=== PATIENT | male | born 1955 | race African-American/Black ===

== ENCOUNTER 2020-01-25 20:11 | Emergency (ER) | payer MEDICARE, MEDICAID ==
[~2020-01-25] VITALS: Ht 188 cm; Wt 83.9 kg
[~2020-01-25 20:11] MED LIST: ABILIFY5 MG ORAL; CEFEPIME-D1 GM/50 ML IVPB; DILANTIN100 MG ORAL; IBUPROFEN600 MG ORAL; LORTAB 5-325 M1 EACH PO; POTASSIUM CHLO20 ME3 PO; RANITIDINE HCL150 MG ORAL; REMERON45 MG ORAL; XARELTO10 MG ORAL; XARELTO15 MG ORAL
--- NOTE | 2020-01-25 20:11 | NUR ---
ED Nurse Note: brought in by andrae [id number] from home c/o bilat leg pain d/t ulcers. pt states chronic ulcer. pt is wheelchair bound. vss, nad, aaox4, ambulatory with wheelchair.
--- NOTE | 2020-01-25 20:17 | Emergency Room Report ---
History of Present Illness General Chief Complaint: Lower Extremity Injury Source: Patient Present Illness HPI 64-year-old male brought in by EMS from his home for wound care. Patient states that he has chronic leg wound ulcers since 1997. He states that he would have a home health nurse come by every couple days for wound care but his insurance changed and has not had any ready to do his wound care. He states that he brought supplies in case we do not have what he needed. He states that he is no longer on antibiotics that they took his PICC line out. Patient denies any fever or chills. He denies any chest pain or shortness of breath. Allergies: Coded Allergies: No Known Allergies (Unverified , 12/10/14) COVID-19 Screening Contact w/high risk pt: No Experienced COVID-19 symptoms?: No COVID-19 Testing performed REVENUE LIAISON: No Patient History Reviewed Nursing Documentation: PMH: Agreed; PSxH: Agreed Nursing Documentation-PMH Hx Hypertension: No Hx Pacemaker: No Hx Asthma: No Hx Diabetes: No Hx Cancer: No Hx Cerebrovascular Accident: No Hx Transient Ischemic Attacks: No Hx Dementia: No Hx Parkinson's Disease: No Hx Seizures: Yes Review of Systems All Other Systems: negative except mentioned in HPI Physical Exam Sp02 EP Interpretation: reviewed, normal General Appearance: no apparent distress, alert, GCS 15, non-toxic Head: normocephalic, atraumatic Eyes: bilateral eye normal inspection, bilateral eye PERRL ENT: hearing grossly normal, normal pharynx, no angioedema, normal voice Neck: full range of motion, supple/symm/no masses Respiratory: no respiratory distress, no accessory muscle use, other - Left lower lobe rhonchi Cardiovascular #1: regular rate, rhythm Gastrointestinal: non tender, soft, no guarding, no rebound Rectal: deferred Musculoskeletal: other - Left lower leg old healing ulceration right tib-fib diffuse macerated lesion and ulceration with yellow foul-smelling discharge Neurologic: upholsterer limousine and hearse III-XII nml as tested, oriented x3 Psychiatric: no suicidal/homicidal ideation Skin: no rash Lymphatic: no adenopathy Medical Decision Making Diagnostic Impression: Primary Impression: Cellulitis Additional Impressions: Pneumonia Pleural effusion Anemia ER Course Patient pancultured. Patient started on vancomycin as well as cefepime for his cellulitis and pneumonia. Patient's vital signs have been stable. Patient being transferred for further treatment and evaluation. Labs Test 01/25/20 21:10 01/25/20 21:17 01/26/20 00:50 White Blood Count 9.7 K/UL (4.8-10.8) Red Blood Count 3.56 M/UL (4.70-6.10) Hemoglobin 10.3 G/DL (14.2-18.0) Hematocrit 32.8 % (42.0-52.0) Mean Corpuscular Volume 92 FL (80-99) Mean Corpuscular Hemoglobin 28.8 PG (27.0-31.0) Mean Corpuscular Hemoglobin Concent 31.3 G/DL (32.0-36.0) Red Cell Distribution Width 15.8 % (11.6-14.8) Platelet Count 367 K/UL (150-450) Mean Platelet Volume 4.5 FL (6.5-10.1) Neutrophils (%) (Auto) 67.8 % (45.0-75.0) Lymphocytes (%) (Auto) 19.4 % (20.0-45.0) Monocytes (%) (Auto) 7.5 % (1.0-10.0) Eosinophils (%) (Auto) 4.7 % (0.0-3.0) Basophils (%) (Auto) 0.6 % (0.0-2.0) Prothrombin Time 10.7 SEC (9.30-11.50) Prothromb Time International Ratio 1.0 (0.9-1.1) Activated Partial Thromboplast Time 32 SEC (23-33) Sodium Level 141 MMOL/L (136-145) Potassium Level 4.0 MMOL/L (3.5-5.1) Chloride Level 109 MMOL/L (98-107) Carbon Dioxide Level 19 MMOL/L (21-32) Anion Gap 13 mmol/L (5-15) Blood Urea Nitrogen 13 mg/dL (7-18) Creatinine 1.9 MG/DL (0.55-1.30) Estimat Glomerular Filtration Rate 43.6 mL/min (>60) Glucose Level 111 MG/DL (74-106) Lactic Acid Level 1.30 mmol/L (0.4-2.0) Calcium Level 9.2 MG/DL (8.5-10.1) Magnesium Level 2.1 MG/DL (1.8-2.4) Total Bilirubin 0.1 MG/DL (0.2-1.0) Aspartate Amino Transf (AST/SGOT) 12 U/L (15-37) Alanine Aminotransferase (ALT/SGPT) 10 U/L (12-78) Alkaline Phosphatase 96 U/L (46-116) Total Creatine Kinase 59 U/L (26-308) Total Protein 7.5 G/DL (6.4-8.2) Albumin 2.3 G/DL (3.4-5.0) Globulin 5.2 g/dL Albumin/Globulin Ratio 0.4 (1.0-2.7) Lab Scanned Report Lab Reports [id number] Urine Color Pale yellow Urine Appearance Clear Urine pH 6 (4.5-8.0) Urine Specific [place] 1.015 (1.005-1.035) Urine Protein 1+ (NEGATIVE) Urine Glucose (UA) Negative (NEGATIVE) Urine Ketones Negative (NEGATIVE) Urine Blood Negative (NEGATIVE) Urine Nitrite Negative (NEGATIVE) Urine Bilirubin Negative (NEGATIVE) Urine Urobilinogen Normal MG/DL (0.0-1.0) Urine Leukocyte Esterase 1+ (NEGATIVE) Urine RBC 0-2 /HPF (0 - 0) Urine WBC 0-2 /HPF (0 - 0) Urine Squamous Epithelial Cells None /LPF (NONE/OCC) Urine Bacteria None /HPF (NONE) EKG Diagnostic Results Troponin ordered: No - EKG ordered for sepsis not chest pain EKG Time: 21:41 EP Interpretation: Carol Jean Baptiste MD Rate: normal - 89 bpm Rhythm: NSR ST Segments: no acute changes Other Impression Left bundle branch block ASA given to the pt in ED: No Rhythm Strip Diag. Results Rhythm Strip Time: 21:46 EP Interpretation: yes Rate: 85bpm Rhythm: NSR, no PVC's, no ectopy Chest X-Ray Diagnostic Results Chest X-Ray Diagnostic Results : Chest X-Ray Ordered: Yes # of Views/Limited/Complete: 1 View Indication: Other - Abscess EP Interpretation: Yes Interpretation: no pneumothorax, other - Left lower lobe pleural effusion with superimposed infiltrate, no rib fracture Impression: Other - Pneumonia and pleural effusion Other X-Ray Diagnostic Results Other X-Ray Diagnostic Results : X-Ray ordered: Right tib-fib # of Views/Limited Vs Complete: 4 View Indication: Pain EP Interpretation: Yes Interpretation: no dislocation, no fractures, other - Diffuse postsurgical changes Impression: Other - Diffuse postsurgical changes and periosteal disease Electronically Signed by: Carol Jean Baptiste MD Disposition: ADMITTED INPATIENT - To [facility] Condition: Critical Physician Consult: Dr. Garibay from [facility] Additional Instructions: The patient was provided with discharge instructions, notified to follow-up with a primary care doctor and or specialist in the next 24-48 hours, and to return to the ED if they have worsening of their symptoms. Please note that this report is being documented using [employer]! technology. This can lead to erroneous entry secondary to incorrect interpretation by the dictating instrument. Carol Jean Baptiste M.D. Jan 25, 2020 20:17
[2020-01-25] MEDS ORDERED: Bacitracin Oint UD TOPIC ONE (20:30)
[2020-01-25] MEDS ORDERED: Vancomycin 1.5gm/NS Premix 275 ML IVPB ONE (20:45)
[2020-01-25] MEDS ORDERED: Cefepime HCl 2 GM in D5W 55 ML IVPB ONE (20:45)
--- NOTE | 2020-01-25 20:49 | NUR ---
ED Nurse Note: xr at bedside
--- NOTE | 2020-01-25 21:00 | NUR ---
ED Nurse Note: blood and covid swab collected and sent to lab
--- NOTE | 2020-01-25 21:20 | Diagnostic Imaging Report ---
EXAM: XR Right Tibia and Fibula, 2 Views CLINICAL HISTORY: PAIN TECHNIQUE: Frontal and lateral views of the right tibia and fibula. COMPARISON: No previous study. FINDINGS: Bones/joints: Extensive orthopedic hardware is noted in place at the distal femur bridging the distal femur with the tibia. Arthrodesis of the right knee joint. There is periosteal reaction about the tibia- fibula, most notably in the mid to distal fibula. If there is concern for osteomyelitis, magnetic resonance imaging should be performed. Osteopenia. Soft tissues: Unremarkable. No radiopaque foreign body. Vasculature: Vascular graft is noted in place posterior medially but the right knee joint. Other findings: Clinical correlation is necessary. Cellulitis cannot be excluded based on the current study. IMPRESSION: 1. Extensive postsurgical changes in arthrodesis about the right knee joint. 2. Diffuse periosteal reaction about the tibia and fibula. 3. If there is concern for cellulitis or osteomyelitis, magnetic resonance imaging should be performed. Clinical correlation is advised to 4. Osteopenia.
--- NOTE | 2020-01-25 21:22 | Diagnostic Imaging Report ---
ADDENDUM - Added by Guru Saul MD on 01/25/2020 9:25 PM (-07:00) Reevaluation the AP view of the chest reveals probable moderate size left pleural effusion without small pneumothorax at the left lung base. EXAM: XR Chest, 1 View CLINICAL HISTORY: PAIN TECHNIQUE: Frontal view of the chest. COMPARISON: No previous study. FINDINGS: Lungs: Patchy airspace disease in the left mid lower lung zones presumably related to atelectasis. Right lung is well aerated. Pleural space: There is pleural thickening of the left mid to lower lung laterally. Small are pneumothorax is evident at the left lung base with associated moderate pleural effusion. Heart: Cardiomediastinal silhouette unremarkable. Mediastinum: See above. Bones/joints: Old healed left mid rib fractures posteriorly. IMPRESSION: 1. Small pneumothorax is evident at the left lung base. 2. Moderate left pleural effusion. 3. Presumed atelectasis left mid lower lung zone. <MYCVCSECTION> Communications: 01/25/20 21:23 Call Doctor Regarding Pneumothorax, called Dr. Jean Baptiste on 01/24 21:23 (-07:00) 01/25/20 21:28 Call Doctor Regarding Addendum, called Dr. Jean Baptiste on 01/24 21:28 (-07:00)
[2020-01-25 21:32] LABS: BASOPHILS % (AUTO) 0.6 % (0.0-2.0); EOSINOPHILS % (AUTO) 4.7 % (0.0-3.0); HEMATOCRIT 32.8 % (42.0-52.0); HEMOGLOBIN 10.3 G/DL (14.2-18.0); LYMPHOCYTES % (AUTO) 19.4 % (20.0-45.0); MEAN CORPUSCULAR VOLUME 92 FL (80-99); MONOCYTES % (AUTO) 7.5 % (1.0-10.0); NEUTROPHILS % (AUTO) 67.8 % (45.0-75.0); PLATELET COUNT 367 K/UL (150-450); RED BLOOD COUNT 3.56 M/UL (4.70-6.10); RED CELL DISTRIBUTION WIDTH 15.8 % (11.6-14.8); WHITE BLOOD COUNT 9.7 K/UL (4.8-10.8)
[2020-01-25 21:54] LABS: ANION GAP 13 mmol/L (5-15); BLOOD UREA NITROGEN 13 mg/dL (7-18); CALCIUM 9.2 MG/DL (8.5-10.1); CARBON DIOXIDE 19 MMOL/L (21-32); CHLORIDE 109 MMOL/L (98-107); CREATININE 1.9 MG/DL (0.55-1.30); SODIUM 141 MMOL/L (136-145)
[2020-01-25 21:58] LABS: ALANINE AMINOTRANSFERASE 10 U/L (12-78); ALBUMIN 2.3 G/DL (3.4-5.0); ALBUMIN/GLOBULIN RATIO 0.4 (1.0-2.7); ALKALINE PHOSPHATASE 96 U/L (46-116); ASPARTATE AMINO TRANSFERASE 12 U/L (15-37); BILIRUBIN,TOTAL 0.1 MG/DL (0.2-1.0); CREATINE KINASE 59 U/L (26-308)
--- NOTE | 2020-01-25 21:58 | NUR ---
ED Nurse Note: spoke with Nanda from [facility] for clinical information
[2020-01-26 01:20] LABS: APPEARANCE,URINE CLEAR; BILIRUBIN, URINE NEGATIVE (NEGATIVE); COLOR,URINE PALE YELLOW; GLUCOSE, URINE (UA) NEGATIVE (NEGATIVE); KETONES,URINE NEGATIVE (NEGATIVE); LEUKOCYTE ESTERASE ,URINE 1+ (NEGATIVE); NITRITE,URINE NEGATIVE (NEGATIVE); PH,URINE 6 (4.5-8.0); PROTEIN,URINE 1+ (NEGATIVE); UROBILINOGEN,URINE NORMAL MG/DL (0.0-1.0)
[2020-01-26 01:30] VITALS: BP 133/87
--- NOTE | 2020-01-26 01:30 | NUR ---
TRANSFER TO FLOOR: Patient transferred to [facility] via [facility] as ordered, per dr. Trevizo . Report given to Jenn DOWELL. Belongings sent with patient
--- NOTE | 2020-01-26 16:20 | Cardiology Report ---
APPROVED REPORT EKG Measurement Heart [id number] <Conclusion> Normal sinus rhythm Possible Left atrial enlargement Left bundle branch block Abnormal ECG
== END 2020-01-26 01:30 | disposition short-term general hospital (02) ==
LOC: EDBD 20:11 → EMR 21:17 → EDBEDREQSVC 21:24 → EMR 01-26 01:30
DX: L03.90 Cellulitis, unspecified (principal); J18.9 Pneumonia, unspecified organism; J90 Pleural effusion, not elsewhere classified; D64.9 Anemia, unspecified; G40.909 Epilepsy, unspecified, not intractable, without status epilepticus; M85.861 Other specified disorders of bone density and structure, right lower leg; J93.9 Pneumothorax, unspecified
CPT/HCPCS: 36415; 71045; 73590; 80053; 81003; 82550; 83605; 83735; 85025; 85610; 85730; 87040; 87070; 87181; 87205; 93005; 96365; 96366; 96368; 99284; J3370; J7030; U0002

== ENCOUNTER 2020-03-25 17:46 | Inpatient (IN) | payer MEDICARE, MEDICAID ==
[~2020-03-25] VITALS: Ht 182.9 cm; Wt 82.6 kg
--- NOTE | 2020-03-25 17:55 | NUR ---
ED Nurse Note: Pt brought in by ambulance from home c/o new bleeding on the right foot. Pt reports having wounds on bilateral lower ext x 1 year, but the foot is now bleeding consistently x 2 days. Right leg assessed and has extensive wounds. Pt unable to ambulate. A+Ox4, speaking in complete sentences. Respirations even and unlabored on room air. Vitals stable as documented.
[2020-03-25 18:00] VITALS: BP 149/85
[2020-03-25] MEDS ORDERED: Vancomycin 1.5gm/300ml Premix 300 ML IVPB ONE (19:00)
--- NOTE | 2020-03-25 19:18 | NUR ---
HAND-OFF: Report given to MAGALYS Bales. Pt in stable condition; plan of care endorsed.
--- NOTE | 2020-03-25 19:19 | NUR ---
ED Nurse Note: pt laying in bed with legs dangling for pain/ pressure relief. Pt is AAOx4, breathing even and unlabored. No complaints from pt at this time.
--- NOTE | 2020-03-25 19:23 | NUR ---
ED Nurse Note: per EDMD do not collect wound culture
--- NOTE | 2020-03-25 19:24 | NUR ---
ED Nurse Note: blood and cultures sent to lab
--- NOTE | 2020-03-25 19:35 | Emergency Room Report ---
History of Present Illness General Chief Complaint: Wound Recheck/Suture Removal Source: Patient, EMS Present Illness HPI 64-year-old male presents for wound check. Brought in by EMS from home. States he was bleeding from his leg. Has large ulcers to his right leg which have been there for years. Gets home wound care. States he does take blood thinners but stopped a few days ago. States that the wound is getting worse to his legs. Denies pain. Denies fevers or chills. No other aggravating relieving factors. Denies any other associated symptoms Allergies: Coded Allergies: No Known Allergies (Unverified , 12/10/14) COVID-19 Screening Contact w/high risk pt: No Experienced COVID-19 symptoms?: No COVID-19 Testing performed COMMUNICATIONS DIRECTOR: No Patient History Past Medical History: none Past Surgical History: none Pertinent Family History: none Social History: Denies: smoking, alcohol use, drug use Immunizations: UTD Reviewed Nursing Documentation: PMH: Agreed; PSxH: Agreed Nursing Documentation-PMH Hx Hypertension: No Hx Pacemaker: No Hx Asthma: No Hx Diabetes: No Hx Cancer: No Hx Cerebrovascular Accident: No Hx Transient Ischemic Attacks: No Hx Dementia: No Hx Parkinson's Disease: No Hx Seizures: Yes Review of Systems All Other Systems: negative except mentioned in HPI Physical Exam Vital Signs Date Time Temp Pulse Resp B/P (MAP) Pulse Ox O2 Delivery O2 Flow Rate FiO2 03/25/20 17:47 98.4 92 19 142/80 (100) 99 Room Air Sp02 EP Interpretation: reviewed, normal General Appearance: no apparent distress, alert, GCS 15, non-toxic Head: normocephalic, atraumatic Eyes: bilateral eye normal inspection, bilateral eye PERRL ENT: hearing grossly normal, normal pharynx, no angioedema, normal voice Neck: full range of motion, supple/symm/no masses Respiratory: chest non-tender, lungs clear, normal breath sounds, speaking full sentences Cardiovascular #1: regular rate, rhythm, no edema Cardiovascular #2: 2+ carotid (R), 2+ carotid (L), 2+ radial (R), 2+ radial (L), 2+ dorsalis pedis (R), 2+ dorsalis pedis (L) Gastrointestinal: normal bowel sounds, non tender, soft, non-distended, no guarding, no rebound Rectal: deferred Genitourinary: normal inspection, no CVA tenderness Musculoskeletal: back normal, normal range of motion, gait/station normal, non- tender Neurologic: alert, motor strength/tone normal, oriented x3, sensory intact, responsive, speech normal Psychiatric: judgement/insight normal, memory normal, mood/affect normal, no suicidal/homicidal ideation Reflexes: 3+ bicep (R), 3+ bicep (L), 3+ tricep (R), 3+ tricep (L), 3+ knee (R), 3+ knee (L) Skin: other - large cutaneous ulcers with breakdown of skin to muscle and bone RLE. Lymphatic: no adenopathy Medical Decision Making Diagnostic Impression: Primary Impression: Chronic cutaneous venous stasis ulcer Additional Impression: Cellulitis Qualified Codes: L03.115 - Cellulitis of right lower limb ER Course Hospital Course 64-year-old male presents with bleeding from ulcers to his right leg Differential diagnoses include: Cellulitis, abscess, rash. Clinical course Patient placed on stretcher. After initial history physical exam reveals middle-age male in no acute distress. There is significant breakdown of skin to numerous parts of the right lower extremity. Often bone is exposed. There appears to be no improvement despite home wound care. Patient may ultimately require amputation. Dressings changed. Labs drawn. IV antibiotics ordered Dr Lloyd consulted. patient admitted to Dr Fuller Diagnosis - cellulitis, chronic cutaneous venous stasis ulcers. Patient admitted to floor in serious condition Laboratory Tests Test 03/25/20 19:20 White Blood Count 10.6 K/UL (4.8-10.8) Red Blood Count 3.01 M/UL (4.70-6.10) L Hemoglobin 8.2 G/DL (14.2-18.0) L Hematocrit 25.6 % (42.0-52.0) L Mean Corpuscular Volume 85 FL (80-99) Mean Corpuscular Hemoglobin 27.3 PG (27.0-31.0) Mean Corpuscular Hemoglobin Concent 32.1 G/DL (32.0-36.0) Red Cell Distribution Width 16.6 % (11.6-14.8) H Platelet Count 383 K/UL (150-450) Mean Platelet Volume 4.8 FL (6.5-10.1) L Neutrophils (%) (Auto) 62.8 % (45.0-75.0) Lymphocytes (%) (Auto) 24.8 % (20.0-45.0) Monocytes (%) (Auto) 7.3 % (1.0-10.0) Eosinophils (%) (Auto) 4.1 % (0.0-3.0) H Basophils (%) (Auto) 0.9 % (0.0-2.0) Prothrombin Time 11.5 SEC (9.30-11.50) Prothromb Time International Ratio 1.0 (0.9-1.1) Activated Partial Thromboplast Time 24 SEC (23-33) Sodium Level Pending Potassium Level Pending Chloride Level Pending Carbon Dioxide Level Pending Blood Urea Nitrogen Pending Creatinine Pending Estimat Glomerular Filtration Rate Pending Glucose Level Pending Lactic Acid Level Pending Calcium Level Pending Total Bilirubin Pending Aspartate Amino Transf (AST/SGOT) Pending Alanine Aminotransferase (ALT/SGPT) Pending Alkaline Phosphatase Pending Total Protein Pending Albumin Pending Globulin Pending Last Vital Signs Date Time Temp Pulse Resp B/P (MAP) Pulse Ox O2 Delivery O2 Flow Rate FiO2 03/25/20 18:00 98.1 85 20 149/85 98 Room Air Status: improved Disposition: HOME, SELF-CARE Condition: Stable Referrals: [facility] Patient Instructions: Wound Check Konrad Rios MD Mar 25, 2020 19:35
[2020-03-25 20:41] LABS: BASOPHILS % (AUTO) 0.9 % (0.0-2.0); EOSINOPHILS % (AUTO) 4.1 % (0.0-3.0); HEMATOCRIT 25.6 % (42.0-52.0); HEMOGLOBIN 8.2 G/DL (14.2-18.0); LYMPHOCYTES % (AUTO) 24.8 % (20.0-45.0); MEAN CORPUSCULAR VOLUME 85 FL (80-99); MONOCYTES % (AUTO) 7.3 % (1.0-10.0); NEUTROPHILS % (AUTO) 62.8 % (45.0-75.0); PLATELET COUNT 383 K/UL (150-450); RED BLOOD COUNT 3.01 M/UL (4.70-6.10); RED CELL DISTRIBUTION WIDTH 16.6 % (11.6-14.8); WHITE BLOOD COUNT 10.6 K/UL (4.8-10.8)
[2020-03-25 20:52] LABS: CREATININE 1.7 MG/DL (0.55-1.30); POTASSIUM 4.7 MMOL/L (3.5-5.1)
[2020-03-25 20:57] LABS: ALBUMIN 2.1 G/DL (3.4-5.0); ALBUMIN/GLOBULIN RATIO 0.4 (1.0-2.7); BILIRUBIN,TOTAL 0.2 MG/DL (0.2-1.0)
[2020-03-25 21:09] VITALS: BP 138/87
--- NOTE | 2020-03-25 21:14 | NUR ---
ED Nurse Note: report given to MAGALYS Alvarenga in [facility].
--- NOTE | 2020-03-25 21:20 | NUR ---
ED Nurse Note: Pt transfered to [facility] via [facility]urney. Per EDMD ok to transfer. Belongings and admission packet sent up with pt.
[2020-03-25 21:45] VITALS: BP 118/58
--- NOTE | 2020-03-25 22:00 | NUR ---
NURSE NOTES: Received report from [facility] ED. Pt arrived @2145 via [place]. AAO x 4, on room air. Pt c/o pain on R leg 11/26. Pt has ulcer on R/L lower leg. Vitals stable. Orientation to the room and facility given. All belongings reviewed and $81 pruett counted. Denied to keep the money in hospital's safe. Pt brought home med Mirtazapine 45mg PO before bedtime but denied to send to the pharmacy. Bed locked, lowest position, side rails up, alarm on, call light within reach. Will continue to monitor. Addendum: 03/25/20 at 235 by LORENZA DIAZ RN RN Admission order entered by Dr. Christian.
[2020-03-25] MEDS: 1/2NS w/KCl 20mEq 1000ml 1,000 ML IV SCH (22:05)
[2020-03-25] MEDS: Piperacillin/Tazobactam 3.375 GM in NS 110 ML IVPB SCH (22:05)
[2020-03-25] MEDS ORDERED: MIRTAZAPINE15 M3 ORAL (22:42)
[2020-03-25] MEDS ORDERED: ATORVASTATIN CA40 MG ORAL (22:49)
--- NOTE | 2020-03-25 23:30 | NUR ---
NURSE NOTES: Wound dressings changed. Large amount of drainage, blood, and foul smell noted on R lower leg. Picture taken. Addendum: 03/26/20 at 0016 by LORENZA DIAZ RN RN NURSE NOTES: 4*4, ABD pads, Kerlix applied
[2020-03-26] VITALS: BP 120/62
[2020-03-26 04:00] VITALS: BP 108/53
[2020-03-26] MEDS: Piperacillin/Tazobactam 3.375 GM in NS 110 ML IVPB SCH ×3 (05:01→21:23)
--- NOTE | 2020-03-26 05:59 | NUR ---
NURSE HAND-OFF: Important Events on Shift:admission, pain, wound care Patient Status: stable Diet: reg Pending Orders: VD 03/26 Pending Results/Labs:am labs Pending MD notification: Latest Vital Signs: Temperature 98.6 , Pulse 109 , B/P 108 /53 , Respiratory Rate 20 , O2 SAT 96 , Room Air, O2 Flow Rate . Vital Sign Comment: [] Latest Castano Fall Score: 20 Fall Risk: Low Risk Safety Measures: Call light Within Reach, Bed Alarm Zone 1, Side Rails Side Rails x2, Bed position Low and Locked. Fall Precautions: Yellow Socks Yellow Gown Door Sign Patient Fall Education Addendum: 03/26/20 at 0735 by LORENZA DIAZ RN RN HAND-OFF: Report given to
[2020-03-26 06:19] LABS: HEMATOCRIT 20.8 % (42.0-52.0); MEAN CORPUSCULAR VOLUME 83 FL (80-99); PLATELET COUNT 356 K/UL (150-450); RED BLOOD COUNT 2.49 M/UL (4.70-6.10); RED CELL DISTRIBUTION WIDTH 16.9 % (11.6-14.8); WHITE BLOOD COUNT 15.4 K/UL (4.8-10.8)
[2020-03-26 06:50] LABS: CALCIUM 8.5 MG/DL (8.5-10.1); CREATININE 1.6 MG/DL (0.55-1.30); POTASSIUM 4.1 MMOL/L (3.5-5.1)
[2020-03-26 07:21] LABS: HEMOGLOBIN 6.9 G/DL (14.2-18.0)
[2020-03-26 08:00] VITALS: BP 126/51
--- NOTE | 2020-03-26 08:19 | NUR ---
NURSE NOTES: Patient is awake and alert,respirations unlabored.IV fluids infusing as ordered.bilateral leg dressing intact.Patient has medication at the bedside,patient agree to have his home medication to be sent to pharmacy.medication sent to pharmacy.Call light within reach.
[2020-03-26] MEDS: Vancomycin 750mg/NS 275ml IVPB SCH ×4 (09:44→21:00)
--- NOTE | 2020-03-26 10:39 | NUR ---
Entry Level Mechanical Engineer: Notified MD Christian about [facility] lab this morning of 6.9. Received new orders, MAGALYS Gonzalez made aware.
--- NOTE | 2020-03-26 10:42 | Diagnostic Imaging Report ---
EXAM: ULTRASOUND Venous Duplex Scan Christopher Leg CLINICAL HISTORY: Leg pain and edema. COMPARISON: None TECHNIQUE: Doppler examination include grayscale images obtained with and without compression, and color and spectral doppler analysis. FINDINGS: Study is positive for bilateral DVT. There is hypoechoic thrombus identified in bilateral common femoral veins which are incompletely compressible. The rest of the left lower extremity from the superficial femoral vein down to the calf veins appear normally patent with good color flow. On the right side, the superficial femoral vein is patent. The popliteal and calf veins are inadequately visualized due to pain and overlying bandages. IMPRESSION: STUDY POSITIVE FOR BILATERAL PARTIAL DVT IS IN THE COMMON FEMORAL VEINS. PATIENT'S NURSE WAS NOTIFIED.
[2020-03-26] MEDS ORDERED: Omnipaque-300 100ml vial INJ ONE (11:00)
[2020-03-26] MEDS ORDERED: Omnipaque-300 100ml vial INJ PRN (11:00)
[2020-03-26] MEDS: 1/2NS w/KCl 20mEq 1000ml 1,000 ML IV SCH (11:20)
--- NOTE | 2020-03-26 11:45 | Consultation ---
DATE OF CONSULTATION: 03/26/2020 INFECTIOUS DISEASES CONSULTATION CONSULTING PHYSICIAN: Clayton Reese MD. REFERRING PHYSICIAN: Del Christian MD. REASON FOR CONSULTATION: Left leg ulcers. HISTORY OF PRESENTING ILLNESS: This is a 64-year-old gentleman with history of seizures who comes in with bleeding from his leg ulcer. He has ulcers on his right leg and his left leg. An Infectious Diseases consultation has been obtained for antibiotics. PAST MEDICAL HISTORY: History of seizures. SOCIAL HISTORY: He is a smoker. He drinks alcohol. No history of drug use. FAMILY HISTORY: Noncontributory. REVIEW OF SYSTEMS: RESPIRATORY: No fever or chills. No cough. No shortness of breath or chest pain. CARDIAC: No chest pain. No palpitations. No dizziness. No syncope. GASTROINTESTINAL: No nausea. No vomiting. No abdominal pain or diarrhea. MUSCULOSKELETAL: He complains of pain. MEDICATIONS: As an inpatient, he is on IV vancomycin, Zosyn, [place], Zofran, Dilaudid, Tylenol. ALLERGIES: No known drug allergies. PHYSICAL EXAMINATION: VITAL SIGNS: Temperature 98.6, T-max of 99.7, pulse of 109, respiratory rate 20, blood pressure 108/53, O2 saturation of 96%. HEENT: Pupils are equally reactive to light and accommodation. Mouth appears clean without thrush. NECK: Supple. No adenopathy. No JVD. CARDIOVASCULAR: Regular rate and rhythm. No murmurs. LUNGS: Clear to auscultation bilaterally. No crackles. No wheezes. ABDOMEN: Soft and nontender. No organomegaly. EXTREMITIES: No cyanosis, no clubbing, no edema. Right leg extensive ulcer noted. Left leg ulcers noted. LABORATORY AND DIAGNOSTIC DATA: White count of 15.4, hemoglobin 6.9, hematocrit 20.8, MCV 83, platelet count of 356. Sodium 137, potassium 4.1, chloride 109, bicarb 21, BUN 13, creatinine 1.6, glucose 106, calcium 8.5. Total bilirubin 0.2, AST 18, ALT 14, alkaline phosphatase 90. Total protein 7.3, albumin 2.1. ASSESSMENT: This is a 64-year-old gentleman with history of seizures who comes in with pain as well as extensive ulcers on his right leg as well as his left leg, would be concerned regarding underlying osteomyelitis. 1. Seizures. 2. Leukocytosis. PLAN: 1. Continue IV vancomycin and Zosyn. 2. We will order wound cultures from the right leg and the left leg. 3. We will order CT of the right and left leg. 4. We would suggest Vascular Surgery evaluation and Orthopedic evaluation. I would like to thank, Dr. Christian, for this consultation. Clayton Reese M.D. DR: Cris JOB#: [id number] CC: Del Christian M.D.; Fax#: [phone]
[2020-03-26 12:00] VITALS: BP 138/74
--- NOTE | 2020-03-26 13:27 | Diagnostic Imaging Report ---
. EXAM: CT CT Tib Fib no Contrast L CLINICAL HISTORY: Leg pain and swelling. TECHNIQUE: Axial images obtained through the left tibia and fibula from the knee down to the ankle. Sagittal and coronal reformat images obtained. All CT scans at this facility hospitals are performed using dose modulation techniques as appropriate to a performed exam including the following: automated exposure control with adjustment of the mA and/or kV according to patient size. RADIATION DOSE: CTDIvol: 7.4 mGy DLP: 378.9 mGy-cm Dose information generated by the CT scanner is available in PACS. COMPARISON: None FINDINGS: Study limited due to motion. Patient unable to remain still for exam. The tibia and fibula appear intact. There is no fracture, bony lysis or cortical erosion. No periosteal new bone formation demonstrated. Surrounding muscular bundles identified. There is mild superficial soft tissue swelling and edema noted mainly in the subcutaneous fat seen at the mid calf down to the ankle. No distinct fluid collection or abscess seen. IMPRESSION: STUDY LIMITED DUE TO MOTION. SUBCUTANEOUS SOFT TISSUE EDEMA IN THE MID CALF DOWN TO THE ANKLE. NO SOFT TISSUE FLUID COLLECTION OR ABSCESS. NO CT EVIDENCE OF OSTEOMYELITIS TO THE EXTENT VISUALIZED.
--- NOTE | 2020-03-26 13:39 | Diagnostic Imaging Report ---
EXAM: CT CT Tib Fib no Contrast R CLINICAL HISTORY: Leg pain and edema. TECHNIQUE: Axial images obtained through the right tibia and fibula from knee down to the ankle. Subsequently sagittal and coronal reformat images obtained. All CT scans at this facility hospitals are performed using dose modulation techniques as appropriate to a performed exam including the following: automated exposure control with adjustment of the mA and/or kV according to patient size. RADIATION DOSE: CTDIvol: 7.4 mGy DLP: 378.9 mGy-cm Dose information generated by the CT scanner is available in PACS. COMPARISON: None FINDINGS: Patient is status post revision of the right knee. There is extensive bone graft noted in the distal femur and proximal tibia. The [place] tibia appears intact. No acute fracture, bony lesion or erosion. The fibula is also intact. There is some periostitis noted along the fibular shaft. No discrete areas of bony lysis demonstrated. Musculature of the right calf is atrophic with fatty infiltration. Overlying skin thickening and irregularity noted with generalized edema. There is soft tissue air noted in the anterior aspect of the high ankle region likely related to skin ulcerations per clinical history. Focal soft tissue infection cannot be excluded. There is no discrete soft tissue fluid collection or abscess. IMPRESSION: STATUS POST RIGHT KNEE PROSTHETIC REVISION. NO CT EVIDENCE OF ACUTE OSTEOMYELITIS. THE PERIOSTEAL NEW BONE FORMATION ALONG THE LENGTH OF THE FIBULAR SHAFT CAN BE SECONDARY TO CHRONIC INFLAMMATION OR VENOUS STASIS. SOFT TISSUE EDEMA AND SOFT TISSUE THICKENING NOTED. SOFT TISSUE AIR LUCENCIES IN THE ANTERIOR HIGH ANKLE REGION MAY BE RELATED TO SOFT TISSUE INFECTION AND/OR SKIN ULCERATIONS. NO DISCRETE FLUID COLLECTION OR ABSCESS.
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
--- NOTE | 2020-03-26 15:00 | History and Physical Report ---
DATE OF ADMISSION: 03/25/2020 CHIEF COMPLAINT: Uncontrolled wound. HISTORY OF PRESENT ILLNESS: This is a 64-year-old male who is under the care of my colleague, Dr. Ema Turk. The patient was brought in by the criminology teacher from his apartment. He has chronic right leg wounds, which are uncontrolled. The patient has been neglecting his wounds. The wounds have been there for a long period of time. It seems that the patient has been neglecting his wounds and not taking proper care of his wounds. The patient has been already seen by Dr. Lloyd for his wounds. The initial thought is to do amputation of his right leg due to unsalvageable infected right leg wounds. The patient is a poor historian. PAST MEDICAL HISTORY: 1. Psych issues. 2. Seizure disorder. 3. Polysubstance abuse. MEDICATIONS: Tylenol p.r.n., [place] p.r.n., Dilaudid p.r.n., Zofran p.r.n., Abilify, atorvastatin, ibuprofen, Remeron, Dilantin. ALLERGIES: No known drug allergies. FAMILY HISTORY: Unremarkable. SOCIAL HISTORY: The patient lives in an apartment. HABITS: He is a nonsmoker, nondrinker. There is no history of illicit drug abuse. REVIEW OF SYSTEMS: HEENT: Hearing and eyesight are normal. ENDOCRINE: No history of diabetes, thyroid, or adrenal problems. RESPIRATORY: Denies shortness of breath, cough, or hemoptysis. CARDIAC: Denies chest pain or palpitations. GASTROINTESTINAL: No history of hematochezia, melena, hematemesis, diarrhea, or constipation. GENITOURINARY: He denies dysuria, frequency, urgency, or hematuria. NEUROLOGICAL: He has history of seizures, most likely related to previous drug abuse and alcohol abuse. PHYSICAL EXAMINATION: GENERAL: This is an elderly male, who is in no acute distress. VITAL SIGNS: Blood pressure is 138/74, pulse 121, sinus tachycardia, respirations 22, temperature 98.4. HEENT: Head is normocephalic and atraumatic. Pupils are equal, round, reactive to light and accommodation consensually. NECK: Supple. Trachea midline. There was no lymphadenopathy or thyromegaly. LUNGS: Clear to auscultation and percussion. HEART: Regular rate and rhythm without rubs, murmurs, or gallops. ABDOMEN: Soft and nontender. Bowel sounds were active. EXTREMITIES: The right leg shows multiple ulcers and wound extensively. NEUROLOGIC: He is alert and oriented x4. Cranial nerves II through XII intact. LABORATORY AND ANCILLARY DATA: CBC, initially white count was 10,600, today 15,400, hemoglobin initially 8.2, today 6.9, platelet count 356,000. Serum chemistry, creatinine initially 1.7, today 1.6. Venous duplex positive for DVT in bilateral femoral veins. ASSESSMENT: 1. Extensive right leg wounds and ulcers. 2. History of drug abuse. 3. Seizure disorder. 4. Psych issues. 5. Seizure disorder. 6. Polysubstance abuse. 7. Bilateral DVT. 8. Chronic kidney disease. 9. Severe anemia. PLAN: 1. Extensive wound care per Dr. Lloyd. 2. IV antibiotics per Dr. Reese. 3. Anticoagulate. 4. Consider IVC filter. 5. Vascular surgery consult to consider IVC filter. 6. Wound debridement by Dr. Lloyd. 7. Transfuse. 8. apron worker evaluation. Del Christian M.D. DR: EMI JOB#: [id number] CC:
--- NOTE | 2020-03-26 15:04 | NUR ---
BOILER HOUSE MECHANIC NOTE SW met w/ pt evaluate home safety. Pt presents as A&O 4x. However, Pt was evasive when asking specific questions and provided limited information. PT resides alone at [id number], [place] [address]. Pt reports using both cane and walker.There is an elevator in the apartment building. Pt reports the granddaughter's assistance is sufficient. However, pt declinde to provide detail on ADLs and IADLs. PT reports he plans to return home when he is medically stable. It is unknown if pt can ambulate by self at this time. PT evaluation recommended. Pt provided verbal consent to contact his granddaughter/caregiver Niesha Gastelum [phone]. SW attempted to call Nirav, was not answered and vm was full. SW will attempt to call the granddaughter to obtain more information. Other emergency contact: Ceferino Harris (child) [phone]
--- NOTE | 2020-03-26 15:11 | Diagnostic Imaging Report ---
EXAM: ULTRASOUND US Renal Comp CLINICAL HISTORY: Urinary retention. Abdominal discomfort. COMPARISON: None TECHNIQUE: Ultrasound examination of the kidneys includes grayscale images, and color and spectral doppler analysis. FINDINGS: Study is technically limited due to patient's inability to cooperate. The right kidney measures 9.2 x 4.1 x 4.9 cm and the left kidney measures 9 x 4.7 x 4.5 cm. Cortical thickness and echogenicity are within normal limits. There is no hydronephrosis or stone seen bilaterally. A right renal cyst noted. Urinary bladder appears distended. IMPRESSION: SMALL RIGHT RENAL CYST. NO OBSTRUCTIVE UROPATHY.
[2020-03-26 16:00] VITALS: BP 119/69
--- NOTE | 2020-03-26 16:45 | NUR ---
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 98.4 HR 92 RR 19 B/P 142/80 CR 1.7 IS: VANCO IV IV BOLUS NS X 1 LITER ADMITTED TO MED/SURG @2119 MED/SURG STATUS DCP PENDING HOSPITAL STAY
--- NOTE | 2020-03-26 17:06 | NUR ---
NURSE NOTES: DR Christian notified,unable to start IV today ,vein finder used but unable to start tried several times but unsucessful.order was placed for Picc l;ine insertion.
--- NOTE | 2020-03-26 19:30 | NUR ---
NURSE NOTES: Received report from MAGALYS Parham. AAO x 4, on room air. Pt is uncooperative and aggressive. No IV access and MD aware. Blood transfusion hold due to no IV access. PICC placement and IVC filter tomorrow. Pt didn't sign consent form. Wound dressing d/c/i. Bed locked, lowest position, alarm on, side rails up, call light within reach. Will continue to monitor.
--- NOTE | 2020-03-26 19:50 | NUR ---
NURSE HAND-OFF: Michelle DOWELL Important Events on blood transfusion ordered. Patient Status: [] Diet: [egular] Pending Orders: [Picc line placement 03/27/20] IVC filter Placement. Pending Results/Labs:[] Pending MD notification:[] Latest Vital Signs: Temperature 98.4 , Pulse 123 , B/P 119 /69 , Respiratory Rate 21 , O2 SAT 95 , Room Air, O2 Flow Rate . Vital Sign Comment: [] Latest Castano Fall Score: 20 Fall Risk: Low Risk Safety Measures: Call light Within Reach, Bed Alarm Zone 1, Side Rails Side Rails x2, Bed position Low and Locked. Fall Precautions: Door Sign y Patient Fall Education Report given to [].
[2020-03-26 20:00] VITALS: BP 110/50
[2020-03-26] MEDS: Enoxaparin 100mg Inj SUBQ SCH (21:00)
[2020-03-26] MEDS: HYDROcodone/Acetamin 5/325 tab ORAL PRN (21:12)
[2020-03-26] MEDS: Acetaminophen 500mg (ES) tab ORAL PRN (21:13)
--- NOTE | 2020-03-26 21:33 | NUR ---
NURSE NOTES: Notified Dr. Christian pt has fever 101.7 and heart rate 126 and no new order received.
--- NOTE | 2020-03-26 22:27 | NUR ---
NURSE NOTES: Obtained consent sign forms for blood transfusion, IVC filter, and PICC placement
[2020-03-27] VITALS (12 sets, daily range): BP systolic 100–125; BP diastolic 52–77
[2020-03-27] MEDS: 1/2NS w/KCl 20mEq 1000ml 1,000 ML IV SCH ×2 (00:40→16:16)
[2020-03-27] MEDS: Piperacillin/Tazobactam 3.375 GM in NS 110 ML IVPB SCH ×3 (05:42→23:36)
[2020-03-27] MEDS: HYDROcodone/Acetamin 5/325 tab ORAL PRN (05:42)
--- NOTE | 2020-03-27 06:27 | NUR ---
NURSE HAND-OFF: Important Events on Shift:Fever, tachycardia, no IV access, blood transfusion holding, obtained consent Patient Status: Diet: NPO Pending Orders: IVC filter, blood transfusion, PICC placement Pending Results/Labs:AM labs Pending MD notification: Latest Vital Signs: Temperature 98.3 , Pulse 100 , B/P 116 /77 , Respiratory Rate 18 , O2 SAT 97 , Room Air, O2 Flow Rate . Vital Sign Comment: [] Latest Castano Fall Score: 20 Fall Risk: Low Risk Safety Measures: Call light Within Reach, Bed Alarm Zone 1, Side Rails Side Rails x2, Bed position Low and Locked. Fall Precautions: Door Sign Patient Fall Education Addendum: 03/27/20 at 0749 by LORENZA DIAZ RN RN HAND-OFF: Report given to Kathrin. Informed low Hgb, NO IV access, holding blood transfusion to operating staff.
[2020-03-27] MEDS ORDERED: Heparin 1000 units/ml 1ml Vial ONE (06:33)
[2020-03-27] MEDS ORDERED: Lidocaine 1% Plain 30 ml INJ ONE ×2 (06:33→07:44)
[2020-03-27] MEDS ORDERED: Isovue-M 300 15ml INJ ONE ×3 (06:33→07:33)
[2020-03-27] MEDS ORDERED: Bupivacaine 0.5% Inj 30 ml vial INJ ONE (06:33)
[2020-03-27] MEDS ORDERED: fentaNYL 100 mcg/2 mL IV ONE (06:44)
[2020-03-27] MEDS ORDERED: Midazolam 2mg/2ml Inj ONE (06:44)
[2020-03-27] MEDS ORDERED: Lidocaine 1% MPF 10mg/ml 5ml ONE ×2 (06:44→07:06)
--- NOTE | 2020-03-27 06:50 | NUR ---
NURSE NOTES: Preop check done. Operating staff came and picked up pt for IVC filter procedure.
[2020-03-27] MEDS ORDERED: Sterile Water Irrig 1000ml IRRIG ONE (07:00)
[2020-03-27] MEDS ORDERED: NS Irrig 1000ml ONE (07:00)
--- NOTE | 2020-03-27 07:50 | NUR ---
NURSE NOTES: I received report from MAGALYS Azevedo; patient is not on the floor; per PM nurse, patient left the floor for IVC filer; PM nurse, Jolly said she endorsed to the surgery that patient's hemoglobin is 6.9 and didn't do the blood transfusion because patient didn't have IV access;
--- NOTE | 2020-03-27 07:57 | Pre-Procedure Note/Attestation ---
Pre-Procedure Note/Attestation Complete Prior to Procedure Planned Procedure: not applicable Procedure Narrative: IVC filter placement Indications for Procedure Pre-Operative Diagnosis: leg DVT Attestation I attest that I discussed the nature of the procedure; its benefits; risks and complications; and alternatives (and the risks and benefits of such alternatives), prior to the procedure, with the patient (or the patient's legal mechanical service representative). I attest that, if there was a reasonable possibility of needing a blood transfusion, the patient (or the patient's legal mechanical service representative) was given the [facility] standardized written summary, pursuant to the Burke Savage Blood Safety Act ([place] Health and Safety Code # 1645, as amended). I attest that I re-evaluated the patient just prior to the surgery and that there has been no change in the patient's H&P, except as documented below: William Naik MD Mar 27, 2020 07:57
--- NOTE | 2020-03-27 08:36 | Anethesia Preoperative Eval ---
Anesthesia Pre-op PMH/ROS General Date of Evaluation: Mar 27, 2020 Time of Evaluation: 07:10 Anesthesiologist: Fan ASA Score: ASA 4 Mallampati Score Class I : Soft palate, uvula, fauces, pillars visible Class II: Soft palate, uvula, fauces visible Class III: Soft palate, base of uvula visible Class IV: Only hard plate visible Mallampati Classification: Class III Surgeon: Gumaro Diagnosis: DVT Surgical Procedure: IVC filter placement Anesthesia History: none Social History: current smoker, alcohol use, drug use - IVDA Family History: no anesthesia problems Allergies: Coded Allergies: No Known Allergies (Unverified , 12/10/14) Medications: see eMAR Patient NPO?: Yes Past Medical History Cardiovascular: Reports: HTN, other - PVD Pulmonary: Denies: asthma, COPD, ROB, other Gastrointestinal/Genitourinary: Reports: GERD, CRI Neurologic/Psychiatric: Reports: other - Psychiatric issues, seizers; Denies: dementia, CVA, depression/anxiety, TIA Endocrine: Reports: hypothyroidism; Denies: DM, steroids, other HEENT: Denies: cataract (L), cataract (R), glaucoma, [place] (L), [place] (R), other Hematology/Immune: Reports: anemia - of chronic d-s, DVT; Denies: bleeding disorder, other Musculoskeletal/Integumentary: Denies: OA, RA, DJD, DDD, edema, other Other: other - manourished PMH Narrative: as above PSxH Narrative: see H&P Anesthesia Pre-op Phys. Exam Physician Exam Last Vital Signs Date Time Temp Pulse Resp B/P (MAP) Pulse Ox O2 Delivery O2 Flow Rate FiO2 03/27/20 04:00 98.3 100 18 116/77 (90) 97 03/26/20 21:00 Room Air Constitutional: NAD Neurologic: other - unable to obtaine Cardiovascular: RRR, other - poor peripheral pulses Respiratory: other - diminished breath sunds Gastrointestinal: S/NT/ND Airway Exam Mallampati Score: Class III MO: limited Neck: stiff ROM: limited Teeth: missing Dentures: no upper, no lower Anesthesia Pre-op A/P Labs see chart Risk Assessment & Plan Assessment: ASA 4 Plan: MAC, intraoperative blood transfusion Status Change Before Surgery: No Pre-Antibiotics Drug: as scheduled Burak Chavira MD Mar 27, 2020 08:36
[2020-03-27] MEDS ORDERED: Heparin1,000 units/500ml Premix(Conc:2 units/ml) IV PRN (09:00)
[2020-03-27] MEDS ORDERED: Lidocaine 1% Plain 30 ml INJ PRN ×3 (09:00→13:58)
[2020-03-27] MEDS: Enoxaparin 100mg Inj SUBQ SCH ×2 (09:00→20:53)
--- NOTE | 2020-03-27 09:08 | Immediate Post-Op Evaluation ---
Immediate Post-Op Evalulation Immediate Post-Op Evalulation Procedure: IVC filter placement Date of Evaluation: Mar 27, 2020 Time of Evaluation: 09:07 IV Fluids: 300 Blood Products: 1 unit of PRBC Estimated Blood Loss: min Urinary Output: none Blood Pressure Systolic: 114 Blood Pressure Diastolic: 68 Pulse Rate: 96 Respiratory Rate: 22 O2 Sat by Pulse Oximetry: 99 Temperature (Fahrenheit): 98.4 Pain Score (1-10): 2 Nausea: No Vomiting: No Complications none Patient Status: reacts, patent, none Hydration Status: adequate Burak Chavira MD Mar 27, 2020 09:08
[2020-03-27] MEDS ORDERED: Meperidine 25mg/1ml Inj (FOR RIGORS ONLY) IV PRN (09:15)
[2020-03-27] MEDS ORDERED: DiphenhydrAMINE 50mg/ml Inj IVP PRN (09:15)
[2020-03-27] MEDS ORDERED: LORazepam Inj 2mg/ml 1ml IV PRN (09:15)
--- NOTE | 2020-03-27 09:18 | Brief Operative Note ---
Immediate Post Operative Note Operative Note Pre-op Diagnosis: leg DVT Procedure: IVC filter placement Post-op Diagnosis: same as pre-op Findings: consistent w/pre-op dx studies Surgeon: Joel Naik Anesthesiologist: Fan Anesthesia: MAC Specimen: none Complications: none Fluids: see anesth. record Estimated Blood Loss: minimal Drains: none Implant(s) used?: Yes - Option Elite IVC filter William Naik MD Mar 27, 2020 09:18
--- NOTE | 2020-03-27 10:31 | NUR ---
NURSE NOTES: I received report from Charge nurseYoandy; patient sleepy coming back from procedure for IVC filter, inserted on Right Sub-Clavian; IV on Left external Jugular 18 G, flushes well; 1 Unit of blood transfused, will transfused the 2nd blood transfusion; vitals taken; side rails up x2, breaks engaged, bed at lowest position; bed alarm on; call light within reach; will keep monitoring.
--- NOTE | 2020-03-27 11:05 | NUR ---
NURSE NOTES: I called and left a message on [facility] emergency line to get an order for diet and medications; waiting for order.
--- NOTE | 2020-03-27 11:15 | Operative Note - Dictated ---
DATE OF OPERATION: 03/27/2020 PREOPERATIVE DIAGNOSES: 1. Bilateral leg DVT. 2. Venous stasis ulcer of the leg. 3. Renal insufficiency. POSTOPERATIVE DIAGNOSES: 1. Bilateral leg DVT. 2. Venous stasis ulcer of the leg. 3. Renal insufficiency as well as findings below. PROCEDURES: 1. Placement of inferior vena cava filter (Option Elite). 2. Right internal jugular vein access and introducer sheath placement. 3. Catheterization via right internal jugular vein with the catheter tip in the inferior vena cava. 4. Selective inferior vena cavogram. 5. Intraoperative ultrasound. 6. Digital subtraction angiography. 7. Supervision and interpretation of angiogram and intervention. SURGEON: William Vela MD. ANESTHESIA: MAC with local. ANESTHESIOLOGIST: Burak Chavira MD. 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 INTRAOPERATIVE FINDINGS/INTERPRETATION OF RESULTS: An IVC was patent and the filter placed as described below without difficulty with the tip just right at the level of the renal vein and the patient tolerated the procedure well. There was no evidence of extravasation or thrombosis or embolization of the device on the completion study. Chest x-ray was ordered postoperatively to rule out hemopneumothorax. The patient remained hemodynamically stable throughout the procedure. PROCEDURE IN DETAIL: With the patient in the Trendelenburg position and after the right side of the neck was prepped and draped in usual sterile fashion, skin was infiltrated with local anesthetic and under ultrasound and fluoroscopic guidance, the right internal jugular vein was entered through a posterior approach to the right sternocleidomastoid muscle with a micropuncture needle. Using a single wall puncture modified Seldinger, a wire was advanced into the vein and followed into the vena cava under fluoroscopy. The needle was removed and the micropuncture introducer sheath and dilator were placed coaxially over the wire into the vessel and the wire and dilator were removed with good venous backbleeding noted from the sheath, which was then exchanged over the wire for the device delivery sheath and dilator, which were advanced over the wire down into the IVC bifurcation where a bolus of diluted contrast was administered for digital subtraction image of the inferior vena cava and location of the renal vein noted. The device was then advanced through the sheath, which was pulled back to release the device at the proper location, as described above. Completion venogram showed adequate results and the sheath was removed and manual compression maintained for hemostasis. Pressure dressing was applied. The patient tolerated procedure well and was transferred to PACU in stable condition. ESTIMATED BLOOD LOSS: Minimal. COMPLICATIONS: None. TOTAL FLUOROSCOPY TIME: 3 minutes and 36 seconds. TOTAL CONTRAST: 15 mL of Isovue-350. The procedure was performed under maximal sterile barrier technique. William Vela M.D. DR: PEDRO LUIS JOB#: [id number] CC: Del Christian MD.; Fax#: [phone] WILLIAM VELA MD. ; FAX#: [phone]
--- NOTE | 2020-03-27 11:16 | Diagnostic Imaging Report ---
Indication: Reason For Exam: Shortness of breath Technique: Single AP view of the chest. Comparison: Chest radiograph Dated 01/25/2020 Findings: The cardiomediastinal silhouette is unchanged in appearance. No new airspace consolidation. Streaky left basilar airspace opacities are noted. Persistent small left pleural effusion. No pneumothorax. IVC filter is noted projecting over the right central abdomen. IMPRESSION: Persistent small left pleural effusion with associated streaky airspace opacities which likely represent compressive atelectasis.
[2020-03-27] MEDS: Vancomycin 750mg/NS 275ml IVPB SCH ×4 (11:34→23:38)
--- NOTE | 2020-03-27 11:39 | Infectious Diseases Prog Note ---
Assessment/Plan Assessment/Plan antibiotics : vancomycin iv, zosyn A 1. bilateral leg ulcers infection CT negative for osteomyelitis 2. renal failure improving 3. DVT s/p IVC filter placement 4. seizures 5. leucocytosis P 1. continue iv vancomycin, zosyn 2. will follow up cultures Subjective ROS Limited/Unobtainable: Yes Allergies: Coded Allergies: No Known Allergies (Unverified , 12/10/14) Objective Last 24 Hour Vital Signs Date Time Temp Pulse Resp B/P (MAP) Pulse Ox O2 Delivery O2 Flow Rate FiO2 03/27/20 10:25 98.0 97 18 107/64 (78) 96 03/27/20 09:44 97.6 88 19 117/69 97 Nasal Cannula 3 03/27/20 09:30 91 20 119/71 98 Nasal Cannula 3 03/27/20 09:26 93 18 123/78 98 03/27/20 09:20 86 17 125/73 100 Simple Mask 6 03/27/20 09:10 92 20 123/74 100 Simple Mask 6 03/27/20 09:08 96 22 99 03/27/20 09:00 90 18 120/70 100 Simple Mask 6 03/27/20 08:58 98.4 95 22 116/72 100 Simple Mask 6 03/27/20 04:00 98.3 100 18 116/77 (90) 97 03/27/20 00:00 98.7 113 20 106/76 (86) 98 03/26/20 21:43 99.0 03/26/20 21:00 Room Air 03/26/20 20:00 101.7 126 20 110/50 (70) 97 03/26/20 16:00 98.4 123 21 119/69 (86) 95 03/26/20 12:00 98.4 121 22 138/74 (95) 95 Height (Feet): 6 Height (Inches): 0.00 Weight (Pounds): 182 Respiratory/Chest: lungs clear Cardiovascular: normal rate, regular rhythm, no gallop/murmur Abdomen: soft, non tender Extremities: no edema, other - right leg and left leg ulcer Microbiology Date/Time Source Procedure Growth Status 03/26/20 17:38 Nasopharynx SARS-CoV-2 RdRp Gene Assay - Final Complete 03/26/20 16:00 Leg Right Gram Stain - Final Resulted 03/26/20 16:00 Leg Right Wound Culture Pending Resulted 03/26/20 16:00 Leg Left Gram Stain - Final Resulted 03/26/20 16:00 Leg Left Wound Culture Pending Resulted 03/25/20 19:20 Blood Blood Culture - Preliminary NO GROWTH AFTER 24 HOURS Resulted 03/25/20 19:20 Blood Blood Culture - Preliminary NO GROWTH AFTER 24 HOURS Resulted Current Medications Medications (Trade) Dose Ordered Sig/Rhonda Route PRN Reason Start Time Stop Time Status Last Admin Dose Admin Acetaminophen (Tylenol) 500 mg Q6H PRN ORAL Temp >100.5 03/25/20 21:00 04/24/20 20:59 03/26/20 21:13 Acetaminophen/ Hydrocodone Bitart ([place] 5/325) 1 tab Q6H PRN ORAL Moderate Pain (Pain Scale 4-6) 03/25/20 21:15 04/01/20 21:14 03/27/20 05:42 Chlorhexidine Gluconate (Christina-Hex 2%) 1 applic DAILY@2000 TOPIC 03/27/20 20:00 06/25/20 19:59 Diphenhydramine HCl (Benadryl) 25 mg Q15M PRN IVP Itching 03/27/20 09:15 03/27/20 18:00 Enoxaparin Sodium (Lovenox) 90 mg EVERY 12 HOURS SUBQ 03/26/20 21:00 06/24/20 20:59 Heparin Sodium/ Sodium Chloride (Heparin 1000 units/500ml Premix) 1,000 unit ONCE PRN IV picc line placement 03/27/20 09:00 03/28/20 08:59 Hydromorphone HCl (Dilaudid) 2 mg Q6H PRN IVP Severe Pain (Pain Scale 7-10) 03/25/20 21:00 04/01/20 20:59 03/26/20 11:31 Lorazepam (Ativan 2mg/ml 1ml) 1 mg Q15M PRN IV For Anxiety 03/27/20 09:15 03/27/20 18:00 03/27/20 09:26 Meperidine HCl (Demerol) 25 mg Q15M PRN IV Shivering 03/27/20 09:15 03/27/20 18:00 03/27/20 09:41 Ondansetron HCl (Zofran) 4 mg Q1H PRN IVP Nausea & Vomiting 03/27/20 09:15 03/27/20 18:00 Ondansetron HCl (Zofran) 4 mg Q6H PRN IVP Nausea & Vomiting 03/25/20 21:00 04/24/20 20:59 Piperacillin Sod/ Tazobactam Sod 3.375 gm/Sodium Chloride 110 ml @ 27.5 mls/hr Q8HR IVPB 03/25/20 22:00 04/01/20 21:59 03/26/20 05:01 Sodium 1,000 ml @ 75 mls/hr [id number] IV 03/25/20 22:00 04/24/20 21:59 03/25/20 22:05 Vancomycin HCl (Vanco pharmacy to dose) 1 ea DAILY PRN MISC Per rx protocol 03/25/20 21:15 04/24/20 21:14 Vancomycin HCl 750 mg/Sodium Chloride 275 ml @ 183.333 mls/hr Q12H IVPB 03/26/20 09:00 03/31/20 08:59 03/26/20 09:44 Clayton Reese MD Mar 27, 2020 11:39
--- NOTE | 2020-03-27 12:51 | NUR ---
RD ASSESSMENT & RECOMMENDATIONS SEE CARE ACTIVITY FOR COMPLETE ASSESSMENT DAILY ESTIMATED NEEDS: Needs based on Wound/ 82.5kg 25-30 kcals/kg total kcals 1.25-1.8 g protein/kg 106-148 g total protein 25-30 mL/kg total fluid mLs NUTRITION DIAGNOSIS: Increased kcal/prot/micronutrients needs R/T wound healing as evidenced by pt admitted w/ extensive right lower extremity tissue loss with chronic opening. CURRENT DIET:REGULAR -> NPO for procedure PO DIET RECOMMENDATIONS: Regular diet w/ double protein portions ADDITIONAL RECOMMENDATIONS: * Wound healing: add MVI w/ mineral x 1, Vit C 500mg BID add ZnSO4 220mg QD x 10 days Zhen BID added to tray * Calibrated bedscale wt
--- NOTE | 2020-03-27 12:52 | NUR ---
NURSE NOTES: I called [facility] regarding PICC line insertion; we don't have Ativan order on board to give to this patient before they take him down; patient is restless and trying to get out of bed; waiting for order.
--- NOTE | 2020-03-27 13:00 | NUR ---
NURSE NOTES: RN spoke to Alexa PACU nurse to cancel PACU orders.
[2020-03-27] MEDS ORDERED: Heparin1,000 units/500ml Premix(Conc:2 units/ml) INJ PRN (13:58)
[2020-03-27 14:35] LABS: HEMATOCRIT 22.4 % (42.0-52.0); HEMOGLOBIN 7.2 G/DL (14.2-18.0); MEAN CORPUSCULAR VOLUME 87 FL (80-99); PLATELET COUNT 316 K/UL (150-450); RED BLOOD COUNT 2.59 M/UL (4.70-6.10); RED CELL DISTRIBUTION WIDTH 15.3 % (11.6-14.8); WHITE BLOOD COUNT 16.7 K/UL (4.8-10.8)
[2020-03-27 14:43] LABS: INR 1.1 (0.9-1.1)
[2020-03-27 14:50] LABS: % IRON SATURATION 9 % (15-50); IRON 11 ug/dL (50-175); TOTAL IRON BINDING CAPACITY 122 ug/dL (250-450)
[2020-03-27 15:02] LABS: ANION GAP 10 mmol/L (5-15); BLOOD UREA NITROGEN 12 mg/dL (7-18); CALCIUM 8.4 MG/DL (8.5-10.1); CARBON DIOXIDE 20 MMOL/L (21-32); CHLORIDE 109 MMOL/L (98-107); CREATININE 1.2 MG/DL (0.55-1.30); POTASSIUM 3.7 MMOL/L (3.5-5.1); SODIUM 139 MMOL/L (136-145)
--- NOTE | 2020-03-27 15:30 | NUR ---
NURSE NOTES: Patient refused for wound dressing to be changed; will keep trying;
--- NOTE | 2020-03-27 15:57 | NUR ---
CASE MANAGEMENT:REVIEW SI;RT LEG ULCER. RT LEG DVT~S/P IVC FILTER PLACEMENT. 96.8 97 20 100/52 93% 3L NC WBC 16.7 H/H 7.2/22.4 IRON 11 IS;NORCO PO Q6 PRN Na IV ZOSYN IV Q8 VANCOMYCIN IV Q12 LOVENOX SQ Q12 MED SURG STATUS DCP;FROM HOME
--- NOTE | 2020-03-27 16:31 | NUR ---
RADIOLOGY NOTE: RIGHT UPPER EXTREMITY PICC LINE PLACEMENT BY DR. NICOLAS AT 1550 HRS. FA
--- NOTE | 2020-03-27 17:08 | General Progress Note ---
Subjective Allergies: Coded Allergies: No Known Allergies (Unverified , 12/10/14) Subjective c/o pain Objective Last 24 Hour Vital Signs Date Time Temp Pulse Resp B/P (MAP) Pulse Ox O2 Delivery O2 Flow Rate FiO2 03/27/20 12:00 96.8 69 20 100/52 (68) 93 03/27/20 10:25 98.0 97 18 107/64 (78) 96 03/27/20 09:56 97 18 107/64 96 03/27/20 09:44 97.6 88 19 117/69 97 Nasal Cannula 3 03/27/20 09:30 91 20 119/71 98 Nasal Cannula 3 03/27/20 09:26 93 18 123/78 98 03/27/20 09:20 86 17 125/73 100 Simple Mask 6 03/27/20 09:10 92 20 123/74 100 Simple Mask 6 03/27/20 09:08 96 22 99 03/27/20 09:00 Room Air 03/27/20 09:00 90 18 120/70 100 Simple Mask 6 03/27/20 08:58 98.4 95 22 116/72 100 Simple Mask 6 03/27/20 04:00 98.3 100 18 116/77 (90) 97 03/27/20 00:00 98.7 113 20 106/76 (86) 98 03/26/20 21:43 99.0 03/26/20 21:00 Room Air 03/26/20 20:00 101.7 126 20 110/50 (70) 97 Intake and Output 03/26/20 03/27/20 19:00 07:00 Intake Total 1140 ml Output Total 1100 ml 500 ml Balance 40 ml -500 ml Intake Oral 840 ml IV Total 300 ml Output Urine Total 1100 ml 500 ml # Voids 1 Laboratory Tests 03/27/20 14:20: White Blood Count 16.7H, Red Blood Count 2.59L, Hemoglobin 7.2L, Hematocrit 22.4L, Mean Corpuscular Volume 87, Mean Corpuscular Hemoglobin 27.9, Mean Corpuscular Hemoglobin Concent 32.2, Red Cell Distribution Width 15.3H, Platelet Count 316, Mean Platelet Volume 4.7L, Neutrophils (%) (Auto) , Lymphocytes (%) (Auto) , Monocytes (%) (Auto) , Eosinophils (%) (Auto) , Basophils (%) (Auto) , Differential Total Cells Counted 100, Neutrophils % (Manual) 78H, Lymphocytes % (Manual) 12L, Monocytes % (Manual) 9, Eosinophils % (Manual) 1, Basophils % (Manual) 0, Band Neutrophils 0, Platelet Estimate Adequate, Platelet Morphology Normal, Hypochromasia 1+, Anisocytosis 1+, Prothrombin Time 12.4H, Prothromb Time International Ratio 1.1, Activated Partial Thromboplast Time 33, Sodium Level 139, Potassium Level 3.7, Chloride Level 109H, Carbon Dioxide Level 20L, Anion Gap 10, Blood Urea Nitrogen 12, Creatinine 1.2, Estimat Glomerular Filtration Rate > 60, Glucose Level 95, Calcium Level 8.4L, Magnesium Level 1.8, Iron Level 11L, Total Iron Binding Capacity 122L, Percent Iron Saturation 9L, Unsaturated Iron Binding 111L Height (Feet): 6 Height (Inches): 0.00 Weight (Pounds): 182 Objective CV RR Lungs CTA Abd SNT. BS + E Rt leg dressed. Assessment/Plan Assessment/Plan: Extensive Rt. leg wounds debridement by Dr. Lloyd. IV Abx. Per ID. Extensive B leg DVT - Lovenox. For IVC Filter. CKD - check Renal US. Anemia of CKD - transfuse + VITO. PVD - will need Angiogram in [facility] when stable. Del Christian MD Mar 27, 2020 17:08
--- NOTE | 2020-03-27 17:17 | NUR ---
NURSE NOTES: RN placed call to radiology to get ok to use order for PICC line, left message,awaiting for the call.
--- NOTE | 2020-03-27 17:29 | Pre-Procedure Note/Attestation ---
Pre-Procedure Note/Attestation Complete Prior to Procedure Planned Procedure: not applicable Procedure Narrative: FLUORO GUIDED PICC PLACEMENT Indications for Procedure Pre-Operative Diagnosis: INFECTION Attestation I attest that I discussed the nature of the procedure; its benefits; risks and complications; and alternatives (and the risks and benefits of such alternatives), prior to the procedure, with the patient (or the patient's legal farm loan representative). I attest that, if there was a reasonable possibility of needing a blood transfusion, the patient (or the patient's legal farm loan representative) was given the [facility] standardized written summary, pursuant to the Burke Savage Blood Safety Act ([place] Health and Safety Code # 1645, as amended). I attest that I re-evaluated the patient just prior to the surgery and that there has been no change in the patient's H&P, except as documented below: Marty Bautista MD Mar 27, 2020 17:29
--- NOTE | 2020-03-27 17:30 | Brief Operative Note ---
Immediate Post Operative Note Operative Note Chief Complaint: LEG ULCER Pre-op Diagnosis: INFECTION Procedure: FLUORO GUIDED PICC PLACEMENT Post-op Diagnosis: INFECTION Post-op Diagnosis: same as pre-op Findings: consistent w/pre-op dx studies Surgeon: MARTY NICOLAS MD, MA Anesthesia: local Specimen: none Complications: none Condition: stable Fluids: 0 Estimated Blood Loss: minimal Implant(s) used?: Yes - 4FR DL PICC @ 43CM Marty Nicolas MD Mar 27, 2020 17:30
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
--- NOTE | 2020-03-27 17:42 | Diagnostic Imaging Report ---
Indications: Infection, Needs long-term IV access Technique: Ultrasound confirms patent compressible right heel vein. Total sterile technique, including sterile probe cover and sterile gel, hat, mask,, sterile gown, large sterile drape, and preparation with 2% chlorhexidine utilized. Local anesthesia with 1% lidocaine was administered. Under real-time ultrasound guidance, the brachial vein was punctured using using 21-gauge needle followed by passage 0.018 guidewire under direct fluoroscopy, which was used to determine appropriate catheter length. Subsequently [id number] a 5 [place] peel-away sheath was exchanged. 4 [place] dual-lumen power PICC cut to 43 cm. It was inserted through the peel-away sheath. Peel-away sheath and guidewire removed. Catheter fixed to the skin. Both catheter ports aspirated and flushed. Patient tolerated procedure well, without immediate complication. Digital radiograph documents satisfactory catheter tip position, in the right atrium. Total fluoroscopy time 57.6 seconds Total dose area product .[id number] [id number] Impression: Successful placement of right sided dual lumen 4 [place] PICC under sonographic and fluoroscopic guidance, as described above.
--- NOTE | 2020-03-27 17:55 | NUR ---
NURSE NOTES: Patient refused his wound dressing to be changed;
--- NOTE | 2020-03-27 18:10 | NUR ---
NURSE NOTES: Patient had an order for 3 bags of Magnesium; currently Zosyn is running; I informed pharmacy regarding this matter;
--- NOTE | 2020-03-27 18:27 | NUR ---
NURSE NOTES: Urine specimen container provided to patient;
--- NOTE | 2020-03-27 18:49 | NUR ---
NURSE NOTES: Urine collected and dropped it to the lab; waiting for results;
[2020-03-27 19:02] LABS: APPEARANCE,URINE CLEAR; BILIRUBIN, URINE NEGATIVE (NEGATIVE); COLOR,URINE PALE YELLOW; GLUCOSE, URINE (UA) NEGATIVE (NEGATIVE); KETONES,URINE NEGATIVE (NEGATIVE); LEUKOCYTE ESTERASE ,URINE NEGATIVE (NEGATIVE); NITRITE,URINE NEGATIVE (NEGATIVE); PH,URINE 7 (4.5-8.0); PROTEIN,URINE 2+ (NEGATIVE); UROBILINOGEN,URINE NORMAL MG/DL (0.0-1.0)
--- NOTE | 2020-03-27 19:25 | NUR ---
NURSE NOTES: Received report from MAGALYS Mcdonald. Pt is currently sleeping, VSS, bed locked and in lowest position, call light within reach. 1 unit of blood is to be given, consent is signed. PICC inserted on CHAN, flushing well.
--- NOTE | 2020-03-27 19:30 | NUR ---
HAND-OFF: Report given to MAGALYS Traore.
[2020-03-27] MEDS: Dyna-Hex 2% Top Sol 2oz TOPIC SCH (20:36)
[2020-03-27] MEDS: Acetaminophen 500mg (ES) tab ORAL PRN (23:38)
[2020-03-28] VITALS: BP 116/87
--- NOTE | 2020-03-28 01:00 | NUR ---
NURSE NOTES: Patient refused wound care on bilateral legs.
--- NOTE | 2020-03-28 02:15 | NUR ---
NURSE NOTES: STARTED BLOOD TRANSFUSION. PRE-TRANSFUSION VITAL STABLE. AFEBRILE. PATIENT EDUCATION PROVIDED.
--- NOTE | 2020-03-28 02:30 | NUR ---
NURSE NOTES: 15 MINS POST TRANSFUSION VITAL SIGNS STABLE. AFEBRILE. NO ADVERSE REACTIONS NOTED.
[2020-03-28 04:00] VITALS: BP 107/57
--- NOTE | 2020-03-28 05:00 | NUR ---
NURSE NOTES: COMPLETED BLOOD TRANSFUSION. NO ADVERSE REACTIONS NOTED. VSS.
[2020-03-28] MEDS: Piperacillin/Tazobactam 3.375 GM in NS 110 ML IVPB SCH ×3 (05:09→21:27)
[2020-03-28] MEDS: 1/2NS w/KCl 20mEq 1000ml 1,000 ML IV SCH ×2 (05:09→16:40)
[2020-03-28] MEDS ORDERED: NS Irrig 1000ml ONE (07:00)
--- NOTE | 2020-03-28 07:20 | NUR ---
NURSE HAND-OFF: Important Events on Shift:[1 unit of blood infused, pt refused dressing change, tylenol given for fever of 100.8] Patient Status: [sleeping] Diet: [regular] Pending Orders: [] Pending Results/Labs:[] Pending MD notification:[] Latest Vital Signs: Temperature 98.2 , Pulse 95 , B/P 107 /57 , Respiratory Rate 20 , O2 SAT 99 , Room Air, O2 Flow Rate 3 . Vital Sign Comment: [tachycardic] Latest Castano Fall Score: 20 Fall Risk: Low Risk Safety Measures: Call light Within Reach, Bed Alarm Zone 1, Side Rails Side Rails x2, Bed position Low and Locked. Fall Precautions: Door Sign Patient Fall Education Report given to [MAGALYS Young].
--- NOTE | 2020-03-28 07:57 | NUR ---
NURSE NOTES: Patient alert x3, sitting high santiago position eating breakfast; IV Right Upper arm double lumen and also Left EJ flushes well; per PM nurse report, patient refused wound dressing changed, will keep trying; side rails up x2, breaks engaged, bed at lowest position; condom cath in place, bed side Commode noted; bed alarm on; call light within reach; will keep monitoring.
[2020-03-28 08:00] VITALS: BP 126/74
--- NOTE | 2020-03-28 08:17 | 48 Hour Post Anesthesia Eval ---
Post Anesthesia Evaluation Procedure: IVC filter placement Date of Evaluation: Mar 28, 2020 Time of Evaluation: 08:16 Blood Pressure Systolic: 116 0: 72 Pulse Rate: 98 Respiratory Rate: 20 Temperature (Fahrenheit): 99.1 O2 Sat by Pulse Oximetry: 98 Airway: patent Nausea: No Vomiting: No Pain Intensity: 3 Hydration Status: adequate Cardiopulmonary Status: stable Mental Status/LOC: patient returned to baseline Follow-up Care/Observations: n/a Post-Anesthesia Complications: none Follow-up care needed: N/A Burak Chavira MD Mar 28, 2020 08:17
[2020-03-28] MEDS: Enoxaparin 100mg Inj SUBQ SCH (09:35)
--- NOTE | 2020-03-28 10:50 | NUR ---
NURSE NOTES: Report received from Lorna DOWELL. No signs and symptoms of distress at this time. PICC line dressing intact and dry. Wound dressing on bilateral legs. Bed lowest position. Call light within reach. Will continue to monitor.
--- NOTE | 2020-03-28 11:04 | NUR ---
HAND-OFF: Report given to MAGALYS Farias.
--- NOTE | 2020-03-28 11:06 | Infectious Diseases Prog Note ---
Assessment/Plan Assessment/Plan A 1. Bilateral leg ulcers infection CT negative for osteomyelitis 2. renal failure improving 3. DVT of legs s/p IVC filter placement 4. seizures 5. leucocytosis 6. Anemia P 1. continue iv vancomycin, Zosyn 2. will follow up cultures Subjective ROS Limited/Unobtainable: Yes Constitutional: Reports: fever, other - zb=[id number] Allergies: Coded Allergies: No Known Allergies (Unverified , 12/10/14) Objective Last 24 Hour Vital Signs Date Time Temp Pulse Resp B/P (MAP) Pulse Ox O2 Delivery O2 Flow Rate FiO2 03/28/20 09:00 Room Air 03/28/20 08:17 98 20 98 03/28/20 08:00 98.1 108 20 126/74 (91) 99 03/28/20 04:00 98.2 95 20 107/57 (74) 99 03/28/20 00:08 98.8 03/28/20 00:00 100.8 92 20 116/87 (97) 100 03/27/20 21:00 Room Air 03/27/20 20:00 99.3 118 20 116/63 (80) 98 03/27/20 16:00 97.0 85 20 112/58 (76) 93 03/27/20 12:00 96.8 69 20 100/52 (68) 93 Height (Feet): 6 Height (Inches): 0.00 Weight (Pounds): 182 General Appearance: no acute distress HEENT: mucous membranes moist Respiratory/Chest: lungs clear Cardiovascular: normal rate Abdomen: soft, non tender Extremities: other - legs edema Skin: ulcers, other - legs Neurologic/Psychiatric: other - sleeping Microbiology Date/Time Source Procedure Growth Status 03/26/20 17:38 Nasopharynx SARS-CoV-2 RdRp Gene Assay - Final Complete 03/26/20 16:00 Leg Right Gram Stain - Final Resulted 03/26/20 16:00 Leg Right Wound Culture Pending Resulted 03/26/20 16:00 Leg Left Gram Stain - Final Resulted 03/26/20 16:00 Leg Left Wound Culture - Preliminary Resulted 03/25/20 19:20 Blood Blood Culture - Preliminary NO GROWTH AFTER 48 HOURS Resulted 03/25/20 19:20 Blood Blood Culture - Preliminary NO GROWTH AFTER 48 HOURS Resulted Laboratory Tests Test 03/27/20 14:03/27/20 18:40 White Blood Count 16.7 K/UL (4.8-10.8) H Red Blood Count 2.59 M/UL (4.70-6.10) L Hemoglobin 7.2 G/DL (14.2-18.0) L Hematocrit 22.4 % (42.0-52.0) L Mean Corpuscular Volume 87 FL (80-99) Mean Corpuscular Hemoglobin 27.9 PG (27.0-31.0) Mean Corpuscular Hemoglobin Concent 32.2 G/DL (32.0-36.0) Red Cell Distribution Width 15.3 % (11.6-14.8) H Platelet Count 316 K/UL (150-450) Mean Platelet Volume 4.7 FL (6.5-10.1) L Neutrophils (%) (Auto) % (45.0-75.0) Lymphocytes (%) (Auto) % (20.0-45.0) Monocytes (%) (Auto) % (1.0-10.0) Eosinophils (%) (Auto) % (0.0-3.0) Basophils (%) (Auto) % (0.0-2.0) Differential Total Cells Counted 100 Neutrophils % (Manual) 78 % (45-75) H Lymphocytes % (Manual) 12 % (20-45) L Monocytes % (Manual) 9 % (1-10) Eosinophils % (Manual) 1 % (0-3) Basophils % (Manual) 0 % (0-2) Band Neutrophils 0 % (0-8) Platelet Estimate Adequate Platelet Morphology Normal Hypochromasia 1+ Anisocytosis 1+ Prothrombin Time 12.4 SEC (9.30-11.50) H Prothromb Time International Ratio 1.1 (0.9-1.1) Activated Partial Thromboplast Time 33 SEC (23-33) Sodium Level 139 MMOL/L (136-145) Potassium Level 3.7 MMOL/L (3.5-5.1) Chloride Level 109 MMOL/L (98-107) H Carbon Dioxide Level 20 MMOL/L (21-32) L Anion Gap 10 mmol/L (5-15) Blood Urea Nitrogen 12 mg/dL (7-18) Creatinine 1.2 MG/DL (0.55-1.30) Estimat Glomerular Filtration Rate > 60 mL/min (>60) Glucose Level 95 MG/DL (74-106) Calcium Level 8.4 MG/DL (8.5-10.1) L Magnesium Level 1.8 MG/DL (1.8-2.4) Iron Level 11 ug/dL (50-175) L Total Iron Binding Capacity 122 ug/dL (250-450) L Percent Iron Saturation 9 % (15-50) L Unsaturated Iron Binding 111 ug/dL (112-346) L Urine Color Pale yellow Urine Appearance Clear Urine pH 7 (4.5-8.0) Urine Specific [place] 1.010 (1.005-1.035) Urine Protein 2+ (NEGATIVE) H Urine Glucose (UA) Negative (NEGATIVE) Urine Ketones Negative (NEGATIVE) Urine Blood 1+ (NEGATIVE) H Urine Nitrite Negative (NEGATIVE) Urine Bilirubin Negative (NEGATIVE) Urine Urobilinogen Normal MG/DL (0.0-1.0) Urine Leukocyte Esterase Negative (NEGATIVE) Urine RBC 2-4 /HPF (0 - 0) H Urine WBC 0-2 /HPF (0 - 0) Urine Squamous Epithelial Cells Few /LPF (NONE/OCC) Urine Bacteria Few /HPF (NONE) Current Medications Medications (Trade) Dose Ordered Sig/Rhonda Route PRN Reason Start Time Stop Time Status Last Admin Dose Admin Acetaminophen (Tylenol) 500 mg Q6H PRN ORAL Temp >100.5 03/25/20 21:00 04/24/20 20:59 03/27/20 23:38 Acetaminophen/ Hydrocodone Bitart ([place] 5/325) 1 tab Q6H PRN ORAL Moderate Pain (Pain Scale 4-6) 03/25/20 21:15 04/01/20 21:14 03/27/20 05:42 Chlorhexidine Gluconate (Christina-Hex 2%) 1 applic DAILY@2000 TOPIC 03/27/20 20:00 06/25/20 19:59 03/27/20 20:36 Enoxaparin Sodium (Lovenox) 80 mg EVERY 12 HOURS SUBQ 03/28/20 21:00 06/26/20 20:59 Hydromorphone HCl (Dilaudid) 2 mg Q6H PRN IVP Severe Pain (Pain Scale 7-10) 03/25/20 21:00 04/01/20 20:59 03/26/20 11:31 Iron Sucrose 100 mg/Sodium Chloride 60 ml @ 240 mls/hr BEDTIME IVPB 03/28/20 21:00 04/01/20 21:14 Lidocaine HCl (Xylocaine 1% 30ml) 30 ml ONCE PRN INJ picc line placement 03/27/20 12:50 03/28/20 23:59 Ondansetron HCl (Zofran) 4 mg Q6H PRN IVP Nausea & Vomiting 03/25/20 21:00 04/24/20 20:59 Piperacillin Sod/ Tazobactam Sod 3.375 gm/Sodium Chloride 110 ml @ 27.5 mls/hr Q8HR IVPB 03/25/20 22:00 04/02/20 15:30 03/28/20 05:09 Sodium 1,000 ml @ 75 mls/hr [id number] IV 03/25/20 22:00 04/24/20 21:59 03/28/20 05:09 Vancomycin HCl (Vanco pharmacy to dose) 1 ea DAILY PRN MISC Per rx protocol 03/25/20 21:15 04/24/20 21:14 Vancomycin HCl 750 mg/Sodium Chloride 275 ml @ 183.333 mls/hr Q12H IVPB 03/28/20 00:00 04/02/20 00:00 03/27/20 23:38 Aime Oseguera MD Mar 28, 2020 11:06
[2020-03-28 12:00] VITALS: BP 128/75
[2020-03-28 12:05] LABS: BASOPHILS % (AUTO) 0.9 % (0.0-2.0); EOSINOPHILS % (AUTO) 2.4 % (0.0-3.0); HEMATOCRIT 26.2 % (42.0-52.0); HEMOGLOBIN 8.5 G/DL (14.2-18.0); LYMPHOCYTES % (AUTO) 14.5 % (20.0-45.0); MEAN CORPUSCULAR VOLUME 86 FL (80-99); MONOCYTES % (AUTO) 6.3 % (1.0-10.0); PLATELET COUNT 292 K/UL (150-450); RED BLOOD COUNT 3.04 M/UL (4.70-6.10); RED CELL DISTRIBUTION WIDTH 14.7 % (11.6-14.8)
[2020-03-28 12:21] LABS: ANION GAP 8 mmol/L (5-15); BLOOD UREA NITROGEN 14 mg/dL (7-18); CARBON DIOXIDE 22 MMOL/L (21-32); CHLORIDE 108 MMOL/L (98-107); CREATININE 1.4 MG/DL (0.55-1.30); POTASSIUM 3.6 MMOL/L (3.5-5.1); SODIUM 138 MMOL/L (136-145)
[2020-03-28] MEDS: Vancomycin 750mg/NS 275ml IVPB SCH ×2 (12:38)
[2020-03-28] MEDS ORDERED: HYDROXYZINE HCL25 M1 PO (13:56)
[2020-03-28] MEDS ORDERED: MIRTAZAPINE45 MG ORAL (13:56)
[2020-03-28] MEDS ORDERED: ABILIFY10 MG ORAL (13:56)
[2020-03-28] MEDS ORDERED: SIMVASTATIN10 MG ORAL (13:56)
[2020-03-28] MEDS ORDERED: MELOXICAM15 MG PO (13:57)
[2020-03-28] MEDS ORDERED: DIPHENHYDRAMINE25 M1 ORAL (13:58)
[2020-03-28] MEDS ORDERED: BENADRYL50 MG ORAL (14:01)
[2020-03-28] MEDS ORDERED: TRAZODONE HCL100 MG ORAL (14:01)
[2020-03-28] MEDS ORDERED: PLAVIX75 MG ORAL (14:01)
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
[2020-03-28 16:00] VITALS: BP 120/73
--- NOTE | 2020-03-28 17:13 | General Progress Note ---
Subjective Allergies: Coded Allergies: No Known Allergies (Unverified , 12/10/14) Subjective c/o pain Objective Last 24 Hour Vital Signs Date Time Temp Pulse Resp B/P (MAP) Pulse Ox O2 Delivery O2 Flow Rate FiO2 03/28/20 16:00 98.0 69 20 120/73 (89) 96 03/28/20 12:00 98.3 96 20 128/75 (92) 97 03/28/20 09:00 Room Air 03/28/20 08:17 98 20 98 03/28/20 08:00 98.1 108 20 126/74 (91) 99 03/28/20 04:00 98.2 95 20 107/57 (74) 99 03/28/20 00:08 98.8 03/28/20 00:00 100.8 92 20 116/87 (97) 100 03/27/20 21:00 Room Air 03/27/20 20:00 99.3 118 20 116/63 (80) 98 Intake and Output 03/27/20 03/28/20 19:00 07:00 Intake Total 727.5 ml 1124.166 ml Output Total 20 ml 300 ml Balance 707.5 ml 824.166 ml Intake Oral 300 ml IV Total 277.5 ml 1124.166 ml Blood Product 150 ml Output Urine Total 300 ml Estimated Blood Loss 20 ml Laboratory Tests 03/27/20 18:40: Urine Color Pale yellow, Urine Appearance Clear, Urine pH 7, Urine Specific [place] 1.010, Urine Protein 2+H, Urine Glucose (UA) Negative, Urine Ketones Negative, Urine Blood 1+H, Urine Nitrite Negative, Urine Bilirubin Negative, Urine Urobilinogen Normal, Urine Leukocyte Esterase Negative, Urine RBC 2-4H, Urine WBC 0-2, Urine Squamous Epithelial Cells Few, Urine Bacteria Few 03/28/20 11:00: White Blood Count 13.0H, Red Blood Count 3.04L, Hemoglobin 8.5L, Hematocrit 26.2L, Mean Corpuscular Volume 86, Mean Corpuscular Hemoglobin 27.8, Mean Corpuscular Hemoglobin Concent 32.3, Red Cell Distribution Width 14.7, Platelet Count 292, Mean Platelet Volume 4.5L, Neutrophils (%) (Auto) 76.0H, Lymphocytes (%) (Auto) 14.5L, Monocytes (%) (Auto) 6.3, Eosinophils (%) (Auto) 2.4, Basophils (%) (Auto) 0.9, Sodium Level 138, Potassium Level 3.6, Chloride Level 108H, Carbon Dioxide Level 22, Anion Gap 8, Blood Urea Nitrogen 14, Creatinine 1.4H, Estimat Glomerular Filtration Rate > 60, Glucose Level 119H, Calcium Level 8.0L Height (Feet): 6 Height (Inches): 0.00 Weight (Pounds): 182 Objective CV RR Lungs CTA Abd SNT. BS + E Rt leg dressed. Assessment/Plan Assessment/Plan: Extensive Rt. leg wounds debridement by Dr. Lloyd. IV Abx. Per ID. Extensive B leg DVT - Lovenox. For IVC Filter. CKD - Renal US unremarkable. GFR improving. Anemia of CKD - transfuse + IV Iron. PVD - will need Ang[place] [facility] [place] when stable. Del Christian MD Mar 28, 2020 17:13
--- NOTE | 2020-03-28 17:20 | Diagnostic Imaging Report ---
Indication: Intraoperative fluoroscopy Technique: Intraoperative fluoroscopy with 5 fluoroscopic stores. Total fluoroscopy time: 216.5 seconds, total dose: 87.25 mGy Comparison: None. Findings: Intraoperative fluoroscopy demonstrates IVC filter placement. IMPRESSION: Intraoperative fluoroscopy of the IVC filter placement. Please refer to operative report for more detail.
--- NOTE | 2020-03-28 18:38 | Diagnostic Imaging Report ---
EXAM: US Duplex Bilateral Lower Extremities Arteries CLINICAL HISTORY: PAIN TECHNIQUE: Real-time duplex ultrasound scan of the bilateral lower extremity arteries integrating B-mode two-dimensional vascular structure, Doppler spectral analysis and color flow Doppler imaging. COMPARISON: No relevant prior studies available. FINDINGS: Right common femoral artery: No acute findings. No occlusion or significant stenosis on color flow and spectral Doppler imaging. Normal waveform. Right superficial femoral artery: No acute findings. No occlusion or significant stenosis on color flow and spectral Doppler imaging. Normal waveform. Right popliteal artery: Not visualized secondary to bandaging. Right calf/foot arteries: Anterior tibialis, posterior tibialis, and peroneal artery were not visualized secondary to bandaging. Dorsalis pedis artery is unremarkable. Left common femoral artery: No acute findings. No occlusion or significant stenosis on color flow and spectral Doppler imaging. Normal waveform. Left superficial femoral artery: No acute findings. No occlusion or significant stenosis on color flow and spectral Doppler imaging. Normal waveform. Left popliteal artery: No acute findings. No occlusion or significant stenosis on color flow and spectral Doppler imaging. Normal waveform. Left calf/foot arteries: Posterior tibialis artery was not visualized secondary to bandaging a cast. Otherwise no occlusion or significant stenosis. Soft tissues: Unremarkable. IMPRESSION: No significant stenosis or occlusion. Limited study as detailed above.
--- NOTE | 2020-03-28 19:30 | NUR ---
NURSE HAND-OFF: Important Events on Shift: Dressing changed Patient Status: Stable Diet: Regular Pending Orders: N/A Pending Results/Labs:N/A Pending MD notification:N/A Latest Vital Signs: Temperature 98.0 , Pulse 69 , B/P 120 /73 , Respiratory Rate 20 , O2 SAT 96 , Room Air, O2 Flow Rate 3 . Vital Sign Comment: Stable Latest Castano Fall Score: 20 Fall Risk: Low Risk Safety Measures: Call light Within Reach, Bed Alarm Zone 1, Side Rails Side Rails x2, Bed position Low and Locked. Fall Precautions: Door Sign Patient Fall Education Report given to Rodolfo DOWELL. Patient in stable condition.
--- NOTE | 2020-03-28 19:49 | NUR ---
NURSE NOTES: Patient in bed, awake, alert and verbally responsive. Able to make needs known. periods of confusion. Kept clean and comfortable. Bed in low and locked position. Provided safe environment. Respiration is even and unlabored. Abdomen is soft and non distended. Noted with lower leg dressings, intact. No complaint of pain or discomfort at this time. Iv site noted. Call light is at bedside. Will continue plan of care.
[2020-03-28 20:00] VITALS: BP 117/69
[2020-03-28] MEDS: Dyna-Hex 2% Top Sol 2oz TOPIC SCH (20:43)
[2020-03-28] MEDS: Iron Sucrose 100 MG in NS 55 ML IVPB SCH (20:44)
[2020-03-28] MEDS: Enoxaparin 80mg Inj SUBQ SCH (20:47)
[2020-03-29] MEDS: Vancomycin 750mg/NS 275ml IVPB SCH ×4 (00:45→11:11)
[2020-03-29] MEDS: Piperacillin/Tazobactam 3.375 GM in NS 110 ML IVPB SCH ×3 (05:26→21:30)
[2020-03-29] MEDS: 1/2NS w/KCl 20mEq 1000ml 1,000 ML IV SCH ×2 (05:26→19:31)
--- NOTE | 2020-03-29 07:09 | NUR ---
NURSE HAND-OFF: Important Events on Shift:WNL Patient Status: Diet: Pending Orders: Pending Results/Labs: Pending MD notification: Latest Vital Signs: Temperature 99.3 , Pulse 98 , B/P 117 /69 , Respiratory Rate 18 , O2 SAT 97 , Room Air, O2 Flow Rate 3 . Vital Sign Comment: WNL Latest Castano Fall Score: 20 Fall Risk: Low Risk Safety Measures: Call light Within Reach, Bed Alarm Zone 1, Side Rails Side Rails x2, Bed position Low and Locked. Fall Precautions: Door Sign Patient Fall Education Report given to Chava Tejeda.
--- NOTE | 2020-03-29 07:43 | NUR ---
NURSE NOTES: Pt. received from MAGALYS Reynolds. Pt. AAOx4, on room air, breathing is even and unlabored, no indications of respiratory distress, no complaints of pain. PICC CHAN, dressing CDI running 1/2 NS with 20 KCl at 75cc, IV noted left EJ saline locked. Dressing to right left CDI. Pt. requesting to go home, instructed that will be discussed with Dr. Christian. Bed low and locked, side rails x3 up, bed alarm active and call light in reach.
[2020-03-29 08:00] VITALS: BP 114/65
[2020-03-29] MEDS: Enoxaparin 80mg Inj SUBQ SCH ×2 (08:36→21:55)
--- NOTE | 2020-03-29 11:36 | Infectious Diseases Prog Note ---
Assessment/Plan Assessment/Plan antibiotics : vancomycin iv, zosyn A 1. bilateral leg ulcers infection CT negative for osteomyelitis 2. renal failure improving 3. DVT s/p IVC filter placement 4. seizures 5. leucocytosis P 1. continue iv vancomycin, zosyn 2. will follow up cultures Subjective Constitutional: Denies: fever, chills Respiratory: Denies: shortness of breath, dry cough Gastrointestinal/Abdominal: Denies: nausea, vomiting, diarrhea Musculoskeletal: Reports: pain Allergies: Coded Allergies: No Known Allergies (Unverified , 12/10/14) Objective Last 24 Hour Vital Signs Date Time Temp Pulse Resp B/P (MAP) Pulse Ox O2 Delivery O2 Flow Rate FiO2 03/29/20 08:00 98.2 92 18 114/65 (81) 99 03/28/20 21:00 Room Air 03/28/20 20:00 99.3 98 18 117/69 (85) 97 03/28/20 16:00 98.0 69 20 120/73 (89) 96 03/28/20 12:00 98.3 96 20 128/75 (92) 97 Height (Feet): 6 Height (Inches): 0.00 Weight (Pounds): 182 Respiratory/Chest: lungs clear Cardiovascular: normal rate, regular rhythm, no gallop/murmur Extremities: no edema, other - bilateral legs in dressings Microbiology Date/Time Source Procedure Growth Status 03/26/20 17:38 Nasopharynx SARS-CoV-2 RdRp Gene Assay - Final Complete 03/26/20 16:00 Leg Right Gram Stain - Final Resulted 03/26/20 16:00 Wound Culture - Preliminary Gram Negative Bacillus 1 Gram Negative Bacillus 2 Resulted 03/26/20 16:00 Leg Left Gram Stain - Final Resulted 03/26/20 16:00 Wound Culture - Preliminary Pseudomonas Aeruginosa Diphtheroids Resulted Laboratory Tests Test 03/28/20 23:00 Vancomycin Level Trough 14.9 ug/mL (5.0-12.0) H Current Medications Medications (Trade) Dose Ordered Sig/Rhonda Route PRN Reason Start Time Stop Time Status Last Admin Dose Admin Acetaminophen (Tylenol) 500 mg Q6H PRN ORAL Temp >100.5 03/25/20 21:00 04/24/20 20:59 03/27/20 23:38 Acetaminophen/ Hydrocodone Bitart ([place] 5/325) 1 tab Q6H PRN ORAL Moderate Pain (Pain Scale 4-6) 03/25/20 21:15 04/01/20 21:14 03/27/20 05:42 Chlorhexidine Gluconate (Christina-Hex 2%) 1 applic DAILY@2000 TOPIC 03/27/20 20:00 06/25/20 19:59 03/28/20 20:43 Enoxaparin Sodium (Lovenox) 80 mg EVERY 12 HOURS SUBQ 03/28/20 21:00 06/26/20 20:59 Hydromorphone HCl (Dilaudid) 2 mg Q6H PRN IVP Severe Pain (Pain Scale 7-10) 03/25/20 21:00 04/01/20 20:59 03/26/20 11:31 Iron Sucrose 100 mg/Sodium Chloride 60 ml @ 240 mls/hr BEDTIME IVPB 03/28/20 21:00 04/01/20 21:14 03/28/20 20:44 Ondansetron HCl (Zofran) 4 mg Q6H PRN IVP Nausea & Vomiting 03/25/20 21:00 04/24/20 20:59 Piperacillin Sod/ Tazobactam Sod 3.375 gm/Sodium Chloride 110 ml @ 27.5 mls/hr Q8HR IVPB 03/25/20 22:00 04/02/20 15:30 03/29/20 05:26 Sodium 1,000 ml @ 75 mls/hr [id number] IV 03/25/20 22:00 04/24/20 21:59 03/29/20 05:26 Vancomycin HCl (Vanco pharmacy to dose) 1 ea DAILY PRN MISC Per rx protocol 03/25/20 21:15 04/24/20 21:14 Vancomycin HCl 750 mg/Sodium Chloride 275 ml @ 183.333 mls/hr Q12H IVPB 03/28/20 00:00 04/02/20 00:00 03/29/20 11:11 Clayton Reese MD Mar 29, 2020 11:36
[2020-03-29 12:00] VITALS: BP 124/71
--- NOTE | 2020-03-29 12:59 | General Progress Note ---
Subjective Allergies: Coded Allergies: No Known Allergies (Unverified , 12/10/14) Subjective c/o pain Objective Last 24 Hour Vital Signs Date Time Temp Pulse Resp B/P (MAP) Pulse Ox O2 Delivery O2 Flow Rate FiO2 03/29/20 08:00 98.2 92 18 114/65 (81) 99 03/28/20 21:00 Room Air 03/28/20 20:00 99.3 98 18 117/69 (85) 97 03/28/20 16:00 98.0 69 20 120/73 (89) 96 Intake and Output 03/28/20 03/29/20 19:00 07:00 Intake Total 1665 ml 1092.500 ml Balance 1665 ml 1092.500 ml Intake Oral 1440 ml IV Total 225 ml 1092.500 ml Laboratory Tests 03/28/20 23:00: Vancomycin Level Trough 14.9H Height (Feet): 6 Height (Inches): 0.00 Weight (Pounds): 182 Objective CV RR Lungs CTA Abd SNT. BS + E Rt leg dressed. Assessment/Plan Assessment/Plan: Extensive Rt. leg wounds debridement by Dr. Lloyd. IV Abx. Per ID. Extensive B leg DVT - Lovenox. For IVC Filter. CKD - Renal US unremarkable. GFR improving. Anemia of CKD - transfuse + IV Iron. PVD - will need Angiogram in [facility] when stable. Del Christian MD Mar 29, 2020 12:58
--- NOTE | 2020-03-29 15:27 | NUR ---
CASE MANAGEMENT:REVIEW SI;BLE DVT. RT LEG WOUND ~ S/P DEBRIDEMENT. 99.3 98 18 117/69 97% ON RA IS;LOVENOX SQ Q12 VENOFER IV QD VANCOMYCIN IV Q12 ZOSYN IV Q12 Na IV @ 75 ML/HR MED SURG STATUS DCP;FROM HOME PLAN; ANGIO TO ATTEMPT TO SALVAGE RT LIMB CONTINUE ABX
[2020-03-29 16:00] VITALS: BP 115/69
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
--- NOTE | 2020-03-29 19:32 | NUR ---
NURSE HAND-OFF: Important Events on Shift:[leg wounds performed, changed to room 417-1] Patient Status: stable Diet: regular Pending Orders: na Pending Results/Labs:na Pending MD notification:na Latest Vital Signs: Temperature 98.2 , Pulse 70 , B/P 115 /69 , Respiratory Rate 16 , O2 SAT 99 , Room Air, O2 Flow Rate 3 . Vital Sign Comment: stable Latest Castano Fall Score: 20 Fall Risk: Low Risk Safety Measures: Call light Within Reach, Bed Alarm Zone 1, Side Rails Side Rails x2, Bed position Low and Locked. Fall Precautions: Door Sign Patient Fall Education Report given to MAGALYS Perdue.
--- NOTE | 2020-03-29 19:38 | NUR ---
NURSE NOTES: The patient is alert and stable and does not appear to be in any active distress at this time. He is on room air with Resp even and unlabored and the bilateral lung sounds clear on auscultation. He was noted with Bilateral leg stasis ulcer that was wrap with curlix as indicated. The patient has a left upper arm picc line that is patent and asymptomatic.The bed in low level and locked with call light within easy reach. will continue to monitor.
[2020-03-29 20:00] VITALS: BP 121/65
[2020-03-29] MEDS: Iron Sucrose 100 MG in NS 55 ML IVPB SCH (21:28)
[2020-03-29] MEDS: Dyna-Hex 2% Top Sol 2oz TOPIC SCH (21:28)
[2020-03-30] VITALS: BP 125/71
[2020-03-30] MEDS: Vancomycin 750mg/NS 275ml IVPB SCH ×4 (00:08→11:29)
[2020-03-30] MEDS: HYDROcodone/Acetamin 5/325 tab ORAL PRN (00:09)
[2020-03-30 04:00] VITALS: BP 123/74
[2020-03-30] MEDS: Piperacillin/Tazobactam 3.375 GM in NS 110 ML IVPB SCH ×2 (05:37→14:23)
--- NOTE | 2020-03-30 07:21 | NUR ---
NURSE HAND-OFF: Important Events on Shift:Alert and stable Patient Status: Diet: Pending Orders: Pending Results/Labs: Pending MD notification: Latest Vital Signs: Temperature 97.4 , Pulse 79 , B/P 123 /74 , Respiratory Rate 17 , O2 SAT 96 , Room Air, O2 Flow Rate 3 . Vital Sign Comment: Latest Castano Fall Score: 20 Fall Risk: Low Risk Safety Measures: Call light Within Reach, Bed Alarm Zone 1, Side Rails Side Rails x2, Bed position Low and Locked. Fall Precautions: Door Sign Patient Fall Education Report given to .
--- NOTE | 2020-03-30 07:33 | NUR ---
NURSE NOTES: Received report from MAGALYS Perdue. The patient is alert and stable and does not appear to be in any active distress at this time. He is on room air with Resp even and unlabored and the bilateral lung sounds clear on auscultation. He was noted with Bilateral leg stasis ulcer that was wrap with curlix as indicated. Patient informed RN that he wants dressing changed at 10. The patient has a left upper arm picc line that is patent and asymptomatic.The bed in low level and locked with call light within easy reach. will continue to monitor.
[2020-03-30 08:00] VITALS: BP 128/68
[2020-03-30] MEDS: Enoxaparin 80mg Inj SUBQ SCH ×2 (08:14→21:00)
[2020-03-30] MEDS: 1/2NS w/KCl 20mEq 1000ml 1,000 ML IV SCH ×2 (08:40→22:00)
--- NOTE | 2020-03-30 11:20 | General Progress Note ---
Subjective Allergies: Coded Allergies: No Known Allergies (Unverified , 12/10/14) Subjective c/o pain Objective Last 24 Hour Vital Signs Date Time Temp Pulse Resp B/P (MAP) Pulse Ox O2 Delivery O2 Flow Rate FiO2 03/30/20 09:00 Room Air 03/30/20 08:00 97.2 76 19 128/68 (88) 98 03/30/20 04:00 97.4 79 17 123/74 (90) 96 03/30/20 00:00 97.6 71 19 125/71 (89) 97 03/29/20 21:00 Room Air 03/29/20 20:00 98.1 78 16 121/65 (83) 99 03/29/20 16:00 98.2 70 16 115/69 (84) 99 03/29/20 12:00 98.1 77 16 124/71 (88) 100 Intake and Output 03/29/20 03/30/20 19:00 07:00 Intake Total 800 ml 1170 ml Output Total 900 ml 1400 ml Balance -100 ml -230 ml Intake Oral 800 ml 720 ml IV Total 450 ml Output Urine Total 900 ml 1400 ml # Voids 4 Height (Feet): 6 Height (Inches): 0.00 Weight (Pounds): 182 Objective CV RR Lungs CTA Abd SNT. BS + E Rt leg dressed. Assessment/Plan Assessment/Plan: Extensive Rt. leg wounds debridement by Dr. Lloyd. IV Abx. Per ID. Extensive B leg DVT - Lovenox. For IVC Filter. CKD - Renal US unremarkable. GFR improving. Anemia of CKD - transfuse + IV Iron. PVD - will need Angiogram in [facility] when stable. Del Christian MD Mar 30, 2020 11:20
[2020-03-30 12:00] VITALS: BP 125/70
--- NOTE | 2020-03-30 14:32 | Infectious Diseases Prog Note ---
Assessment/Plan Assessment/Plan A 1. Bilateral leg ulcers infection CT negative for osteomyelitis 2. renal failure improving 3. DVT of legs s/p IVC filter placement 4. seizures 5. leucocytosis 6. Anemia P 1. Discontinue iv vancomycin, Zosyn 2. Start on Levaquin & Cefepime Subjective ROS Limited/Unobtainable: No Constitutional: Reports: no symptoms Respiratory: Reports: no symptoms Gastrointestinal/Abdominal: Reports: no symptoms Genitourinary: Reports: no symptoms Musculoskeletal: Reports: no symptoms Allergies: Coded Allergies: No Known Allergies (Unverified , 12/10/14) Objective Last 24 Hour Vital Signs Date Time Temp Pulse Resp B/P (MAP) Pulse Ox O2 Delivery O2 Flow Rate FiO2 03/30/20 12:00 96.8 80 18 125/70 (88) 99 03/30/20 09:00 Room Air 03/30/20 08:00 97.2 76 19 128/68 (88) 98 03/30/20 04:00 97.4 79 17 123/74 (90) 96 03/30/20 00:00 97.6 71 19 125/71 (89) 97 03/29/20 21:00 Room Air 03/29/20 20:00 98.1 78 16 121/65 (83) 99 03/29/20 16:00 98.2 70 16 115/69 (84) 99 Height (Feet): 6 Height (Inches): 0.00 Weight (Pounds): 182 General Appearance: no acute distress HEENT: mucous membranes moist Respiratory/Chest: lungs clear Cardiovascular: normal rate Abdomen: soft, non tender Extremities: other - legs edema Skin: ulcers, other - legs Neurologic/Psychiatric: alert, responsive Current Medications Medications (Trade) Dose Ordered Sig/Rhonda Route PRN Reason Start Time Stop Time Status Last Admin Dose Admin Acetaminophen (Tylenol) 500 mg Q6H PRN ORAL Temp >100.5 03/25/20 21:00 04/24/20 20:59 03/27/20 23:38 Acetaminophen/ Hydrocodone Bitart (Sharon 5/325) 1 tab Q6H PRN ORAL Moderate Pain (Pain Scale 4-6) 03/25/20 21:15 04/01/20 21:14 03/30/20 00:09 Chlorhexidine Gluconate (Christina-Hex 2%) 1 applic DAILY@1999 TOPIC 03/27/20 20:00 06/25/20 19:59 03/29/20 21:28 Enoxaparin Sodium (Lovenox) 80 mg EVERY 12 HOURS SUBQ 03/28/20 21:00 06/26/20 20:59 03/30/20 08:14 Hydromorphone HCl (Dilaudid) 2 mg Q6H PRN IVP Severe Pain (Pain Scale 7-10) 03/25/20 21:00 04/01/20 20:59 03/26/20 11:31 Iron Sucrose 100 mg/Sodium Chloride 60 ml @ 240 mls/hr BEDTIME IVPB 03/28/20 21:00 04/01/20 21:14 03/29/20 21:28 Ondansetron HCl (Zofran) 4 mg Q6H PRN IVP Nausea & Vomiting 03/25/20 21:00 04/24/20 20:59 Piperacillin Sod/ Tazobactam Sod 3.375 gm/Sodium Chloride 110 ml @ 27.5 mls/hr Q8HR IVPB 03/25/20 22:00 04/02/20 15:30 03/30/20 14:23 Sodium 1,000 ml @ 75 mls/hr [id number] IV 03/25/20 22:00 04/24/20 21:59 03/29/20 19:31 Vancomycin HCl (Vanco pharmacy to dose) 1 ea DAILY PRN MISC Per rx protocol 03/25/20 21:15 04/24/20 21:14 Vancomycin HCl 750 mg/Sodium Chloride 275 ml @ 183.333 mls/hr Q12H IVPB 03/28/20 00:00 04/02/20 00:00 03/30/20 11:29 Aime Oseguera MD Mar 30, 2020 14:32
[2020-03-30] MEDS: Levofloxacin 500mg tab ORAL SCH (15:34)
[2020-03-30 16:00] VITALS: BP 120/68
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
--- NOTE | 2020-03-30 19:18 | NUR ---
NURSE HAND-OFF: Important Events on Shift:Dressing changed on bilateral leg Patient Status: stable Diet: regular Pending Orders: n/a Pending Results/Labs:n/a Pending MD notification:n/a Latest Vital Signs: Temperature 97.2 , Pulse 82 , B/P 120 /68 , Respiratory Rate 17 , O2 SAT 98 , Room Air, O2 Flow Rate 3 . Vital Sign Comment: stable Latest Castano Fall Score: 20 Fall Risk: Low Risk Safety Measures: Call light Within Reach, Bed Alarm Zone 1, Side Rails Side Rails x2, Bed position Low and Locked. Fall Precautions: Door Sign Patient Fall Education Report given to MAGALYS Beebe.
--- NOTE | 2020-03-30 19:56 | NUR ---
NURSE NOTES: Received patient in bed, awake, alert, oriented x4, on room air, IV sites are clean dry and intact, able to make his needs known, call light is within reach, bed is lowered, locked, alarm is on, will continue to monitor for comfort and safety.
[2020-03-30 20:00] VITALS: BP 127/98
[2020-03-30] MEDS: Dyna-Hex 2% Top Sol 2oz TOPIC SCH (20:00)
[2020-03-30] MEDS: Cefepime HCl 1 GM in D5W 55 ML IVPB SCH (21:00)
[2020-03-30] MEDS: Iron Sucrose 100 MG in NS 55 ML IVPB SCH (21:00)
[2020-03-31] VITALS: BP 128/84
[2020-03-31 04:00] VITALS: BP 139/74
--- NOTE | 2020-03-31 07:30 | NUR ---
NURSE HAND-OFF: Important Events on Shift: uneventful Patient Status: full Diet: regular Pending Orders: Pending Results/Labs: Pending MD notification: Latest Vital Signs: Temperature 98.1 , Pulse 79 , B/P 139 /74 , Respiratory Rate 18 , O2 SAT 97 , Room Air, O2 Flow Rate 3 . Vital Sign Comment: Latest Castano Fall Score: 20 Fall Risk: Low Risk Safety Measures: Call light Within Reach, Bed Alarm Zone 1, Side Rails Side Rails x2, Bed position Low and Locked. Fall Precautions: Door Sign Patient Fall Education Report given to MAGALYS Graves
--- NOTE | 2020-03-31 07:38 | NUR ---
NURSE NOTES: Received report from MAGALYS Foster. The patient is alert and stable and does not appear to be in any active distress at this time. He is on room air with Resp even and unlabored and the bilateral lung sounds clear on auscultation. He was noted with Bilateral leg stasis ulcer that was wrap with curlix as indicated. Patient informed RN that he wants dressing changed when he calls The patient has a left upper arm picc line that is patent and asymptomatic.The bed in low level and locked with call light within easy reach. will continue to monitor.
[2020-03-31 08:00] VITALS: BP 120/71
[2020-03-31] MEDS: Enoxaparin 80mg Inj SUBQ SCH (08:12)
[2020-03-31] MEDS: Cefepime HCl 1 GM in D5W 55 ML IVPB SCH (08:13)
[2020-03-31] MEDS: Levofloxacin 500mg tab ORAL SCH (09:47)
--- NOTE | 2020-03-31 11:21 | General Progress Note ---
Subjective Allergies: Coded Allergies: No Known Allergies (Unverified , 12/10/14) Subjective c/o pain Objective Last 24 Hour Vital Signs Date Time Temp Pulse Resp B/P (MAP) Pulse Ox O2 Delivery O2 Flow Rate FiO2 03/31/20 09:00 Room Air 03/31/20 08:00 97.9 84 20 120/71 (87) 98 03/31/20 04:00 98.1 79 18 139/74 (95) 97 03/31/20 00:00 97.9 87 18 128/84 (99) 98 03/30/20 22:08 Room Air 03/30/20 20:00 98.7 74 18 127/98 (108) 98 03/30/20 16:00 97.2 82 17 120/68 (85) 98 03/30/20 12:00 96.8 80 18 125/70 (88) 99 Intake and Output 03/30/20 03/31/20 19:00 07:00 Intake Total 500 ml Output Total 1200 ml 1200 ml Balance -700 ml -1200 ml Intake Oral 500 ml Output Urine Total 1200 ml 1200 ml # Voids 3 Height (Feet): 6 Height (Inches): 0.00 Weight (Pounds): 182 Objective CV RR Lungs CTA Abd SNT. BS + E Rt leg dressed. Assessment/Plan Assessment/Plan: Extensive Rt. leg wounds debridement by Dr. Lloyd. IV Abx. Per ID. Extensive B leg DVT - Lovenox. For IVC Filter. CKD - Renal US unremarkable. GFR improving. Anemia of CKD - transfuse + IV Iron. PVD - will need Angiogram in [facility] when stable. No beds in [facility]. DC home for dressing changes. Admit @ [facility] through ER Wednesday04/03/20. ALESIA Naik. [facility] to follow. Del Russo CM., MD Mar 31, 2020 11:21
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
[2020-03-31] MEDS: 1/2NS w/KCl 20mEq 1000ml 1,000 ML IV SCH (11:44)
[2020-03-31 12:00] VITALS: BP 111/69
--- NOTE | 2020-03-31 12:09 | NUR ---
DISCHARGE PLANNED PLAN IS FOR PATIENT TO DISCHARGE HOME TODAY WITH [facility] AND ORDER HAS BEEN FAXED TO [facility] 'T: [phone] F: [phone] WOUND CARE Addendum: 03/31/20 at 1331 by AVINASH MYLES LVN LVN CALLED HOME [facility]ALTH AND SPOKE WITH CARMINA WHO VERIFIED SHE RECEIVED THE FAX
[2020-03-31 16:00] VITALS: BP 124/70
--- NOTE | 2020-03-31 16:46 | NUR ---
NURSE NOTES: Received call from Just[facility] Dalton. Made RN aware that they are delayed and will seed cone picker patient at 1745. Charge nurse made aware
--- NOTE | 2020-03-31 18:00 | NUR ---
NURSE NOTES: RN spoke to Michael and infromed RN that they will be delayed for another hour and a half. Charge nurse made aware
--- NOTE | 2020-03-31 18:08 | NUR ---
NURSE NOTES: RN received order from Alina to remove PICC line before discharge
--- NOTE | 2020-03-31 19:34 | NUR ---
NURSE HAND-OFF: Important Events on Shift:[DC pending] Patient Status: [stable] Diet: [regular] Pending Orders: [n/a] Pending Results/Labs:[n/a] Pending MD notification:[n/a] Latest Vital Signs: Temperature 98.4 , Pulse 83 , B/P 124 /70 , Respiratory Rate 19 , O2 SAT 97 , Room Air, O2 Flow Rate 3 . Vital Sign Comment: [stable] Latest Castano Fall Score: 20 Fall Risk: Low Risk Safety Measures: Call light Within Reach, Bed Alarm Zone 1, Side Rails Side Rails x2, Bed position Low and Locked. Fall Precautions: Door Sign Patient Fall Education Report given to [MAGALYS Sal].
--- NOTE | 2020-03-31 19:59 | NUR ---
NURSE NOTES: Patient discharged home with [facility]. ANOx4. VSS. Belongings accounted for. Leg dressings clean, dry and intact. Jugular IV removed. ID band removed. Spoke with caregiver Dhaval during ambulance pickup to make her aware that patient was leaving soon. wastewater process engineer aware.
--- NOTE | 2020-04-02 12:05 | Discharge Summary ---
Discharge Summary Discharge Summary _ DATE OF ADMISSION: 03/25/2020 DATE OF DISCHARGE: 03/31/2020 DISCHARGED BY: Dr. Skinner REASON FOR ADMISSION: 64 years old male with past medical history of hypertension, seizure disorder, anxiety, presented for evaluation of right leg ulcer. Patient reported bleeding from the ulcer. Ulcer was reported as being chronic, present for years. Patient was getting at home wound care. Patient reported taking blood thinners, which he stopped few days ago. According to patient wound was getting worse. He denied fever and chills. He denied pain. In emergency department patient was diagnosed with cellulitis and chronic venous stasis ulcer and admitted for further management. CONSULTANTS: Vascular surgeon Dr. Gumaro PLEITEZ specialist Dr. Reese General surgery Dr. Lloyd HOSPITAL COURSE: Patient admitted to medical surgical floor. Wound care provided as per surgeon recommendation. Antibiotic provided as per ID recommendation. Patient was transfused 2 units of packed red blood cells for hemoglobin 6.9 , hematocrit 20.8. Venous duplex bilateral lower extremity revealed bilateral partial DVT in the common femoral veins. CT scan of the left tibia revealed subcutaneous soft tissue edema; no soft tissue fluid collection or abscess. No CT evidence of osteomyelitis. CT scan of the right tibia-fibula revealed no evidence of acute osteomyelitis. Status post right knee prosthetic revision. No discrete fluid collection or abscess. Soft tissue edema and soft tissue thickening noted , most likely related to soft tissue infection . Arterial duplex revealed no significant stenosis or occlusion. Vascular surgeon seen and evaluated patient. Patient subsequently undergone placement of inferior vena cava filter. Patient also undergone placement of PICC line by interventional radiology. Renal parameters and electrolytes were closely monitored . Patient with known chronic kidney disease. Renal ultrasound revealed no obstructive uropathy. Creatinine trended down from initial 1.7 down to 1.4. Hemoglobin and hematocrit were closely monitored with goal to keep hemoglobin above 7. Prior to discharge hemoglobin 8.5, hematocrit 26.2. Anemia work-up revealed evidence of anemia of chronic disease. Patient received IV iron. Blood cultures were negative. Wound culture revealed on the left leg Pseudomonas , and the the right leg Klebsiella , E. coli ESBL and Pseudomonas. Antibiotic optimized based on culture as per ID specialist recommendation. Rapid COVID-19 was negative. Patient will need angiogram in [facility] . Continue home health for wound care at home. Patient clinically stabilized and was ready for discharge. FINAL DIAGNOSES: Bilateral leg DVT Status post IVC filter Bilateral leg infected ulcer/cellulitis Venous stasis ulcer Chronic kidney disease Anemia of chronic disease Seizure disorder Leukocytosis DISCHARGE MEDICATIONS: See Medication Reconciliation list. DISCHARGE INSTRUCTIONS: Patient was discharged home with home health services for wound care. Patient was scheduled for admission to [facility] for angiogram on 04/03. I have been assigned to dictate discharge summary for this account. I was not involved in the patient's management. Lesia Morrow NP Apr 02, 2020 12:05
== END 2020-03-31 19:59 | disposition home health service (06) | DRG 300 ==
LOC: EDBD 17:46 → EMR 18:10 → 4E 19:19 → EDBEDREQ 21:14 → 4E 03-27 12:41
PROC: 06H03DZ Insertion of Intraluminal Device into Inferior Vena Cava, Percutaneous Approach (ICD-10-PCS; principal; 2020-03-25)
PROC: 02H633Z Insertion of Infusion Device into Right Atrium, Percutaneous Approach (ICD-10-PCS; principal; 2020-03-25)
PROC: 30233N1 Transfusion of Nonautologous Red Blood Cells into Peripheral Vein, Percutaneous Approach (ICD-10-PCS; 2020-03-27)
DX: I82.413 Acute embolism and thrombosis of femoral vein, bilateral (principal); L03.115 Cellulitis of right lower limb; L03.116 Cellulitis of left lower limb; L97.929 Non-pressure chronic ulcer of unspecified part of left lower leg with unspecified severity; L97.919 Non-pressure chronic ulcer of unspecified part of right lower leg with unspecified severity; Z16.12 Extended spectrum beta lactamase (ESBL) resistance; I12.9 Hypertensive chronic kidney disease with stage 1 through stage 4 chronic kidney disease, or unspecified chronic kidney disease; N18.9 Chronic kidney disease, unspecified; R58 Hemorrhage, not elsewhere classified; D64.9 Anemia, unspecified; F19.10 Other psychoactive substance abuse, uncomplicated; G40.909 Epilepsy, unspecified, not intractable, without status epilepticus; D63.8 Anemia in other chronic diseases classified elsewhere; F17.200 Nicotine dependence, unspecified, uncomplicated; E86.0 Dehydration; I83.009 Varicose veins of unspecified lower extremity with ulcer of unspecified site; B96.5 Pseudomonas (aeruginosa) (mallei) (pseudomallei) as the cause of diseases classified elsewhere; B96.20 Unspecified Escherichia coli [E. coli] as the cause of diseases classified elsewhere; B96.1 Klebsiella pneumoniae [K. pneumoniae] as the cause of diseases classified elsewhere
CPT/HCPCS: 36415; 36573; 71045; 76000; 76770; 76937; 80048; 80053; 80202; 81003; 83540; 83550; 83605; 83735; 85007; 85025; 85610; 85730; 86850; 86900; 86901; 86920; 87040; 87070; 87181; 87205; 93925; 93970; 94003; 94150; 96361; 96365; 99285; J2180; J2250; J7030; U0002